=== PATIENT | female | born 1930 | race American Indian/Alaskan Native ===

== ENCOUNTER 2017-09-08 06:38 | Day surgery (SDC) | payer MEDICARE ==
[2017-08-15 09:02] VITALS: BMI 25.1
[~2017-09-08 06:38] MED LIST: Iohexol 350 MG/100 ML VIAL ONE
[2017-09-08 07:23] LABS: BASO # 0.03 K/mm3 (0.0-2.0); BASO % 0.4 % (0.0-3.0); EOS # 0.3 (0.0-0.7); EOS % 3.2 % (1.5-5.0); GRAN # 6.47 (1.4-6.5); GRAN % 76.6 % (50.0-68.0); HEMOGLOBIN 9.6 g/dL (12.0-16.0); LYMPH # 1.2 (1.2-3.4); LYMPH % 13.8 % (22.0-35.0); MEAN CELL VOLUME 71.1 fl (80.0-105.0); MEAN CORPUSCULAR HEMOGLOBIN 21.8 pg (25.0-35.0); MEAN CORPUSCULAR HGB CONC 30.7 g/dl (31.0-37.0); MEAN PLATELET VOLUME 9.8 fl (7.0-11.0); MONO # 0.5 (0.1-0.6); RBC 4.4 10^6/uL (3.5-6.1); RED CELL DISTRIBUTION WIDTH 18.8 % (11.5-14.5); WHITE BLOOD COUNT 8.5 10^3/ul (4.5-11.0)
[2017-09-08 07:34] LABS: BLOOD UREA NITROGEN 15 mg/dL (7-21); CALCIUM 9.6 mg/dL (8.4-10.5); GFR AFRICAN-AMERICAN > 60; GFR NON-AFRICAN AMERICAN 59; HDL CHOLESTEROL 38 mg/dL (29-60)
[2017-09-08 07:38] LABS: INR 1.04 (0.93-1.08); PARTIAL THROMBOPLASTIN TIME 31.3 Seconds (25.1-36.5)
[2017-09-08 07:44] LABS: LDL CHOLESTEROL 87 mg/dL (0-129)
[2017-09-08] MEDS ORDERED: Lidocaine 2% Inj (20ml) ONE (07:49)
[2017-09-08] MEDS ORDERED: Sodium Chloride 0.9% 1,000 ML IV SCH (08:30)
[2017-09-08 09:10] VITALS: BP 141/61; PULSE 55; RESP 18; TEMP 97.7; O2SAT 94
--- NOTE | 2017-09-08 09:20 | CPOSTOP ---
DATE: 09/08/2017 CARDIOVASCULAR PROCEDURE DONE IN [facility] (IMPLANTATION OF LOOP RECORDER). PHYSICIAN: Redd Chilel MD. HYPERBARIC NURSE: Amanda Manzano. TYPE OF ANESTHESIA: None. PRE-PROCEDURE DIAGNOSIS: Recurrent palpitation rule out paroxysmal atrial fibrillation. PROCEDURE PERFORMED: Implantation of loop recorder Link Medtr[employer]. FINDINGS: No complication, implantation of loop recorder. FINAL DIAGNOSIS: Recurrent palpitation rule out paroxysmal atrial fibrillation. POST PROCEDURE CONDITION: The patient's condition is stable. ACCESS SITE: Left side of the chest. CLOSURE DEVICE: None. RADIATION DOSE: None. FLUORO TIME: None. Redd Chilel MD
--- NOTE | 2017-09-08 12:54 | CARDCATH ---
PROCEDURE DATE: 09/08/2017 CARDIOVASCULAR PROCEDURE NAME OF PROCEDURE: Implantation of loop recorder. INDICATION: Recurrent palpitation, rule out paroxysmal atrial fibrillation. FINAL DRESSING CUTTER: Redd Chilel MD WOOL BROKER: Amanda Manzano, electrical assembly technician, [facility]. BRIEF CLINICAL HISTORY: This 87-year-old female with a past medical history of hypertension, history of nonobstructive coronary artery disease status post cardiac catheterization on 03/2013, only obtuse marginal with 50% stenosis. Recently had noninvasive workup including echo, mild MR, mild aortic sclerosis versus aortic stenosis, ejection fraction 65% on 12/2016. Also, the patient has a stress test on 12/2016 with essentially normal ejection fraction of 70%, keep on complaining of palpitation, Holter was negative, so the patient is scheduled for implantation of loop recorder because of the recurrent palpitation, rule out paroxysmal atrial fibrillation. PROCEDURE PERFORMED: Implant of loop recorder. The patient was brought to the track laborer, draped in a sterile standard fashion. Left side of the chest was prepped and in fourth intercostal space 1.5 cm away from the midline, lidocaine injection was given and then with a [employer] BP knife #11, a small incision was made and a pocket was created for the loop recorder and the loop recorder was injected. Puncture site was closed with a Dermabond. The patient tolerated the procedure well and returned to the floor in stable condition. Arrangement has been made for the followup and transtelephonic [facility] service for loop recorder wireless transmission has been made. The patient remained stable and returned to the floor in stable condition. Plan is to discharge home and continue with same medication and followup transtelephonic in six months onsite. Redd Chilel MD cc: Dr. Gallego. Dr. Mishra.
--- NOTE | 2017-09-08 16:19 | HP ---
REASON FOR ADMISSION: Implantation of loop recorder, LIN[employer]. BRIEF CLINICAL HISTORY: This is an 87-year-old female with a past medical history significant for hypertension, hyperlipidemia, mitral regurgitation on DIAMOND, came in with a complaint of palpitation multiple times in Dr. Mishra's office and complained of tightness to chest associated with palpitations, so the patient is scheduled for elective implantation of loop recorder. PAST MEDICAL HISTORY: Past history significant for hypertension; hyperlipidemia; mitral regurgitation on DIAMOND, severe. Previous cardiac workup as follows. History of echocardiography dated 01/01/2017 shows normal chambers, ejection fraction 65%, [id number] aortic regurgitation, mild valvular aortic sclerosis, mild mitral regurgitation, trace tricuspid regurgitation, RV systolic pressure 35. History of stress test on 01/01/2017 shows normal myocardial perfusion with ejection fraction of 72%. Prior to that, the patient's DIAMOND in the past shows severe mitral regurgitation. History of cardiac catheterization in 03/2013 shows OM1 50% stenosis. SOCIAL HISTORY: Denies any history of alcohol abuse. CURRENT MEDICATIONS: The patient is at home taking metoprolol succinate 50 mg daily, aspirin 81 mg daily, Norvasc 10 mg daily. REVIEW OF SYSTEMS: As per HPI. PHYSICAL EXAMINATION: VITAL SIGNS: Height of the patient is 5 feet 2 inches. Weight of the patient 145 pounds. Body mass index 26.5 kg/m2. Temperature afebrile, heart rate 60, blood pressure 190/60. HEENT: PERRLA, intact. NECK: Supple. No carotid bruit. No thyromegaly. CHEST: Clear to auscultation. HEART: S1 and S2 regular. ABDOMEN: Soft. EXTREMITIES: Clubbing and cyanosis negative. IMPRESSION: Recurrent palpitation, mild mitral regurgitation. Prior, the patient had severe MR when the blood pressure goes up. Recently, stress test in 2017 was negative. History of cardiac catheterization in 03/2013, nonobstructive coronary artery disease, limited to only 50% OM1. Recent echo in 12/2016 shows mild aortic stenosis versus sclerosis, mild myocardial infarction, ejection fraction 65%. Stress test in 12/2016 essentially normal myocardial perfusion study. EKG, baseline right bundle-branch block, recurrent palpitation, rule out paroxysmal atrial fibrillation. The patient is scheduled for elective implantation of loop recorder from the recommendations. After the loop recorder, we will follow with you. Thank you, Dr. Gallego, for providing us the opportunity in taking care of the patient, Yenny Astorga. Redd Chilel MD
--- NOTE | 2017-09-09 15:18 | CARD ---
APPROVED REPORT EKG Measurement Heart [id number] <Conclusion> Marked sinus bradycardia Right bundle branch block Abnormal ECG
== END 2017-09-08 09:38 | disposition home or self-care (01) ==
LOC: SDSVAS 06:38
PROVIDERS: ATTEND Internal Medicine Cardiovascular Disease
DX: R00.2 Palpitations (principal); I34.0 Nonrheumatic mitral (valve) insufficiency; I25.10 Atherosclerotic heart disease of native coronary artery without angina pectoris; I10 Essential (primary) hypertension; E78.5 Hyperlipidemia, unspecified
CPT/HCPCS: 33282; 36415; 80048; 80061; 85025; 85610; 85730; 86850; 86900; C1764; J7040 ×2

== ENCOUNTER 2017-11-25 09:59 | Inpatient (IN) | payer MEDICARE, OTHER ==
[2017-11-25 10:16] VITALS: BMI 24.7
[2017-11-25] MEDS ORDERED: Morphine 2 mg/ml ISec IVP STA (10:32)
[2017-11-25] MEDS ORDERED: Sodium Chloride 0.9% 500 ML IV STA (10:33)
[2017-11-25] MEDS ORDERED: Albuterol 0.083% Inhal Sol (2.5 mg/3 mL) UD INH STA (10:37)
[2017-11-25 10:48] LABS: BASO # 0.04 K/mm3 (0.0-2.0); BASO % 0.5 % (0.0-3.0); EOS # 0.2 (0.0-0.7); EOS % 3.1 % (1.5-5.0); GRAN # 5.48 (1.4-6.5); GRAN % 74.2 % (50.0-68.0); HEMOGLOBIN 9.3 g/dL (12.0-16.0); LYMPH % 13.5 % (22.0-35.0); MEAN CELL VOLUME 72.3 fl (80.0-105.0); MEAN CORPUSCULAR HEMOGLOBIN 21.7 pg (25.0-35.0); MONO # 0.6 (0.1-0.6); MONO % 8.7 % (1.0-6.0); PLATELET COUNT 468 10^3/uL (120.0-450.0); RBC 4.29 10^6/uL (3.5-6.1); RED CELL DISTRIBUTION WIDTH 19.2 % (11.5-14.5); WHITE BLOOD COUNT 7.4 10^3/ul (4.5-11.0)
--- NOTE | 2017-11-25 10:50 | RAD ---
Date of service: 11/25/2017 HISTORY: Chest Tightness COMPARISON: 01/11/2014 FINDINGS: LUNGS: Interval trace discoid atelectasis left lung base. The mid more mid lung zone trace discoid atelectatic changes and/or fibrosis are similar in appearance No more significant appearing consolidation appreciated. PLEURA: No significant pleural effusion identified, no pneumothorax apparent. CARDIOVASCULAR: Cardiomegaly-as before. Mild pulmonary venous congestion interstitial probably slightly increased since prior exam. OSSEOUS STRUCTURES: No significant abnormalities. VISUALIZED UPPER ABDOMEN: Normal. OTHER FINDINGS: None. IMPRESSION: Probable mild increased pulmonary venous congestion. Cardiomegaly as before. No effusion.
[2017-11-25 10:58] LABS: ALB/GLOB RATIO 1.1 (1.1-1.8); ALBUMIN 3.8 g/dL (3.0-4.8); ALT/SGPT 20 U/L (7-56); AST/SGOT 32 U/L (14-36); BLOOD UREA NITROGEN 11 mg/dL (7-21); CALCIUM 9.4 mg/dL (8.4-10.5); GFR AFRICAN-AMERICAN > 60; GFR NON-AFRICAN AMERICAN 59
[2017-11-25 11:04] LABS: INR 1.05
[2017-11-25 11:09] LABS: B-TYPE NATRIURETIC PEPTIDE 1210 pg/mL (0-450); TROPONIN I < 0.01 ng/mL
--- NOTE | 2017-11-25 13:22 | CP.PCM.HP ---
<Khadra Beckwith - Last Filed: 11/25/17 14:54> History of Present Illness - History of Present Illness History of Present Illness: CC: chest pressure for 1 week HPI: 87yo female PMHx HTN, HLD, thrombocytosis, severe MR presents with chest pressure for 1 week. Patient reports she decided to come in today as the pressure was not improving. She described it as a tightness in the middle of her chest rated 8-9/10 in intensity. The tightness is intermittent with no identifiable exacerbating or alleviating factors. Patient reports that sometimes the chest pressure would radiate to her right side. She also has dyspnea on exertion and is able to ambulate 1/2 a block prior to feeling short of breath. She does admit to some orthopnea at times but uses 1 pillow to sleep generally; the night prior to admission patient tried to sleep with 2 pillows but it did not help her chest tightness. She admitted to some b/l ankle swelling at the end of the day. Patient denied any recent travel/sick contacts. Of note patient was recently seen by Dr. Chilel 2 weeks ago to have a loop recorded placed as she was complaining of chest tightness and palpitations. Patient also had a stress test 01/01/17 showing normal mycocardial perfusion with EF 72% ROS: admits: intermittent headache, intermittent palpitations improved since implantation of loop recorded and change in medications, chest pressure, dyspnea on exertion, some b/l ankle swelling at the end of the day denies: fever, chills, dizziness, cough, abd pain, nausea, vomiting, bowel/ bladder complaints, pain in legs b/l PMHx: HTN, HLD, thrombocytosis, severe MR seen on DIAMOND PSurgHx: denies PProcedure: implantation of loop recorded 09/08/17; cardiac cath 03/2013 OM1 50% stenosis PH[place] [facility] [place], mitral regurg and had a cardiac cath showing nonobstructive CAD FamHx: father of an OH in his 70s and son of esophageal cancer [ tobacco abuse in son's hx] in his 40s; no hx of CVA in family SocHx: Lives alone; denies EtOH/tobacco use/drug use (used to smoke cigarettes 35 years ago for 20 years); ambulates without cane/walker and completes all ADLs ; 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 Meds: ASA 81mg po qd, Metoprolol 50mg po bid ALL: NKDA PMD: Potoczek [not seen in a while] Quantitative Analyst: Dr. Chilel [last seen 2 weeks ago] Pharmacy: [facility] off of [address] Present on Admission - Present on Admission Any Indicators Present on Admission: No Review of Systems - Review of Systems All systems: reviewed and no additional remarkable complaints except - Constitutional Constitutional: As Per HPI, Headache. absent: Chills, Fever - EENT Eyes: As Per HPI. absent: Blurred Vision Ears: As Per HPI. absent: Dizziness Nose/Mouth/Throat: As Per HPI. absent: Sore Throat - Cardiovascular Cardiovascular: As Per HPI, Dyspnea on Exertion, Palpitations, Pedal Edema. absent: Chest Pain Additional comments: chest tightness - Respiratory Respiratory: As Per HPI, Dyspnea on Exertion. absent: Cough, Wheezing - Gastrointestinal Gastrointestinal: As Per HPI. absent: Abdominal Pain, Constipation, Diarrhea, Nausea, Vomiting - Genitourinary Genitourinary: As Per HPI. absent: Dysuria, Hematuria, Pyuria - Musculoskeletal Musculoskeletal: As Per HPI. absent: Back Pain, Numbness, Tingling - Integumentary Integumentary: As Per HPI. absent: Dry Skin, Rash - Neurological Neurological: As Per HPI, Headaches. absent: Dizziness - Endocrine Endocrine: As Per HPI, Palpitations. absent: Polydipsia, Polyphagia, Polyuria - Hematologic/Lymphatic Hematologic: As Per HPI, Easy Bruising. absent: Easy Bleeding Past Patient History - Infectious Disease Hx of Infectious Diseases: None - Past Social History Smoking Status: Former Smoker - CARDIAC Hx Hypertension: Yes Hx Pacemaker: No - PULMONARY Hx Respiratory Disorders: Yes (Mild shortness of breath with exertion.) - NEUROLOGICAL Hx Paralysis: No - HEENT Hx HEENT Problems: No - RENAL Hx Chronic Kidney Disease: No - ENDOCRINE/METABOLIC Hx Endocrine Disorders: No - HEMATOLOGICAL/ONCOLOGICAL Hx Blood Transfusions: Yes (MANY YRS AGO) Hx Blood Transfusion Reaction: No - INTEGUMENTARY Hx Dermatological Problems: No - MUSCULOSKELETAL/RHEUMATOLOGICAL Hx Musculoskeletal Disorders: Yes - GASTROINTESTINAL Hx Gastrointestinal Disorders: No - GENITOURINARY/GYNECOLOGICAL Hx Genitourinary Disorders: No - PSYCHIATRIC Hx Emotional Abuse: No Hx Physical Abuse: No Hx Substance Use: No - SURGICAL HISTORY Hx Surgeries: No - ANESTHESIA Hx Anesthesia Reactions: No Hx Malignant Hyperthermia: No Meds Allergies/Adverse Reactions: Allergies Allergy/AdvReac Type Severity Reaction Status Date / Time No Known Allergies Allergy Verified 11/25/17 17:11 Physical Exam - Constitutional Appears: Non-toxic, No Acute Distress - Head Exam Head Exam: ATRAUMATIC, NORMAL INSPECTION, NORMOCEPHALIC - Eye Exam Eye Exam: EOMI, Normal appearance, PERRL. absent: Conjunctival injection, Scleral icterus Pupil Exam: NORMAL ACCOMODATION - ENT Exam ENT Exam: Mucous Membranes Moist - Neck Exam Neck exam: Positive for: Full Rom, Normal Inspection. Negative for: Lymphadenopathy - Respiratory Exam Respiratory Exam: NORMAL BREATHING PATTERN. absent: Accessory Muscle Use, Rales , Rhonchi, Wheezes, Respiratory Distress - Cardiovascular Exam Cardiovascular Exam: Bradycardia, REGULAR RHYTHM, +S1, +S2. absent: Systolic Murmur - GI/Abdominal Exam GI & Abdominal Exam: Normal Bowel Sounds, Soft. absent: Firm, Guarding, Rigid, Tenderness - Rectal Exam Rectal Exam: Deferred - Extremities Exam Extremities exam: Positive for: pedal edema (+1 b/l L>R), pedal pulses present. Negative for: calf tenderness - Back Exam Back exam: absent: rash noted - Neurological Exam Neurological exam: Alert, CN II-XII Intact, Oriented x3 - Psychiatric Exam Psychiatric exam: Normal Affect, Normal Mood - Skin Skin Exam: Dry, Intact, Normal Color, Warm Results - Vital Signs Recent Vital Signs: Last Vital Signs Temp 98.6 F 11/25/17 09:59 Pulse 50 L 11/25/17 12:19 Resp 18 11/25/17 12:19 BP 112/80 11/25/17 12:56 Pulse Ox 100 11/25/17 12:19 - Labs Result Diagrams: 11/25/17 10:30 11/25/17 10:30 Assessment & Plan - Assessment and Plan (Free Text) Assessment: 87yo female PMHx HTN, HLD, thrombocytosis, severe MR presents with chest pressure for 1 week. Plan: Chest tightness and dyspnea on exertion -r/o ACS and r/o new onset CHF; admit to remote TELE-Obs -troponin x 1 negative f/u troponin x 2 -EKG: sinus bradycardia with RBB unchanged from EKG 09/08/17 -BNP on admission 1210 -f/u Echo -f/u TSH and free T4 in light of patient's palpitations -Lasix 20mg ivp -continue home Metoprolol 50mg po bid -measure daily weights -strict Is and Os -HHD with 2gm Na and 1500cc fluid restriction -Cardio Dr. Chilel/Dr. Mishra consulted Hx of HTN -continue home meds ASA 81mg qd and Metoprolol 50mg po bid Hx of HLD -Lipid panel on prior admission 09/08/17 was WNL TG 124 Cholesterol 186 LDL 87 HDL 38 Hx of Thrombocytosis -chronic -no acute issues -monitor DVT ppx: SCDs and Heparin 5000 q8 Diet: HHD with 2gm Na and 1500cc fluid restriction Consults: Dr. Mishra/Dr. Chilel cardiology Discussed with Dr. Mauro Beckwith PGY3 <Ely Wade R - Last Filed: 11/26/17 07:51> Results - Vital Signs Recent Vital Signs: Last Vital Signs Temp 98.3 F 11/25/17 18:31 Pulse 48 L 11/26/17 06:00 Resp 18 11/25/17 18:31 BP 177/64 H 11/25/17 18:31 Pulse Ox 96 11/25/17 18:31 - Labs Result Diagrams: 11/26/17 07:00 11/25/17 10:30 Labs: Laboratory Results - last 24 hr 11/25/17 11/25/17 11/25/17 14:15 16:15 16:15 WBC RBC Hgb Hct MCV MCH MCHC RDW Plt Count MPV Gran % Lymph % (Auto) [place] % (Auto) Eos % (Auto) Baso % (Auto) Gran # Lymph # (Auto) [place] # (Auto) Eos # (Auto) Baso # (Auto) Troponin I < 0.01 Free T4 1.48 TSH 3rd Generation 5.39 H Urine Color Yellow Urine Appearance Clear Urine pH 6.0 Ur Specific Curtice 1.025 Urine Protein Trace H Urine Glucose (UA) Negative Urine Ketones Negative Urine Blood Negative Urine Nitrate Negative Urine Bilirubin Negative Urine Urobilinogen 0.2 Ur Leukocyte Esterase Moderate H Urine RBC 0 - 2 Urine WBC 5 - 10 Ur Epithelial Cells 4 - 5 Urine Bacteria Mod 11/25/17 11/26/17 22:36 07:00 WBC 6.7 RBC 4.10 Hgb 8.7 L Hct 29.8 L MCV 72.7 L MCH 21.2 L MCHC 29.2 L RDW 19.3 H Plt Count 442 MPV 10.3 Gran % 67.4 Lymph % (Auto) 16.7 L [place] % (Auto) 12.1 H Eos % (Auto) 3.4 Baso % (Auto) 0.4 Gran # 4.53 Lymph # (Auto) 1.1 L [place] # (Auto) 0.8 H Eos # (Auto) 0.2 Baso # (Auto) 0.03 Troponin I < 0.01 Free T4 TSH 3rd Generation Urine Color Urine Appearance Urine pH Ur Specific Curtice Urine Protein Urine Glucose (UA) Urine Ketones Urine Blood Urine Nitrate Urine Bilirubin Urine Urobilinogen Ur Leukocyte Esterase Urine RBC Urine WBC Ur Epithelial Cells Urine Bacteria Attending/Attestation - Attestation I have personally seen and examined this patient.: Yes I have fully participated in the care of the patient.: Yes I have reviewed all pertinent clinical information: Yes Notes (Text): Patient seen and examined by me at 14:30 with resident 11/25/17. Case including HPI, physical exam, and assessment and plan discussed with resident. Agree with above with following additions/corrections. Patient is an 87-year-old female with past medical history significant for hypertension, hyperlipidemia, thrombocytosis, palpitations, and severe mitral regurgitation that presents to the emergency room with worsening of chest pressure and shortness of breath. Patient states that she has been getting short of breath for approximately 2 weeks now and it has been progressively getting worse. She states that she is feeling short of breath with exertion and at rest. However the shortness of breath with exertion is worse than at rest. Patient states that she normally sleeps with one pillow at night. However last night patient attempted to sleep with 2 pillows and still felt short of breath. Patient also complains of chest "tightness" with intermittent "pressure-like" discomfort. She denies any chest pain. She states that both her chest tightness and chest pressure intermittent. It has on occasion radiated to her right axillary area. The tightness is an 8-9 out of 10 in intensity. Patient also complains of palpitations but states that this has improved since being started on metoprolol. She states that she has had palpitations or life. No associated nausea or vomiting. No associated diaphoresis. Patient states that she also has some ankle swelling on occasion at the end of the day. No abdominal pain. No headaches or dizziness. No dysuria. No neck pain or back pain. No calf pain. No lightheadedness. No fevers or chills. 12 point review systems reviewed by me. Please see HPI. All other systems are negative. Physical exam: Gen: Awake and alert sitting up in bed in no acute distress HEENT: Normocephalic atraumatic. Extraocular muscles intact, pupils equal reactive. Oropharynx is pink and moist, no pharyngeal erythema or exudate appreciated. Neck is supple. Hearing grossly intact. Ears and nose externally unremarkable Cardiovascular: Bradycardic S1, S2. No murmurs, rubs, or gallops appreciated, Positive bilateral lower extremity pitting edema. Pulmonary: Normal respiratory effort. No rhonchi, rales or wheezing appreciated. Gastrointestinal: Soft, nontender, nondistended, positive bowel sounds all 4 quadrants, no guarding. Musculoskeletal: Normal range of motion all extremities, no calf tenderness Central nervous system: AAO x 3. 5/5 muscle strength all extremities. CN 2-12 grossly intact Dermatologic: Skin warm and dry Assessment and plan: Patient is an 87-year-old female with past medical history significant for hypertension, hyperlipidemia, thrombocytosis, palpitations, and severe mitral regurgitation that presents to the emergency room with worsening of chest pressure and shortness of breath. 1. Chest tightness and shortness of breath. Rule out ACS. First troponin within normal limits. EKG shows sinus bradycardia and right bundle branch block. She recently had loop recorder placement. Cardiology consulted, follow up recommendations. ?new onset CHF. Elevated BNP. Symptoms improved after Lasix given in the ED. Will continue on lasix 20mg IV daily. Continue home medications metoprolol and ASA. 2d echo ordered. Follow up serial troponins. Follow up TSH and Free T4. Monitor on telemetry. 2. Essential hypertension. Continue metoprolol 50mg PO BID 3. Palpitations. Continue home Metopolol. Monitor on telemetry. Cardiology consulted 4. Thrombocytosis. Chronic. No acute issues. Continue to monitor. 5. Anemia. Chronic. H&H at baseline. No signs of acute bleeding. Continue to monitor. 6. Abnormal urinalysis. Patient asymptomatic. Follow up urine culture. 7. DVT prophylaxis. Heparin Case was discussed in detail with the patient regarding current diagnosis and treatment plan.
[2017-11-25 14:25] LABS: URINE BILIRUBIN NEGATIVE (NEGATIVE); URINE BLOOD NEGATIVE (NEGATIVE); URINE GLUCOSE (UA) NEGATIVE (NEGATIVE); URINE LEUKOCYTE ESTERASE MODERATE Leu/uL (NEGATIVE); URINE PROTEIN TRACE mg/dL (<30 mg/dL); URINE UROBILINOGEN 0.2 E.U./dL (<1 E.U./dL)
[2017-11-25 14:27] LABS: URINE APPEARANCE CLEAR (CLEAR); URINE COLOR YELLOW (YELLOW)
[2017-11-25 14:36] LABS: URINE BACTERIA MOD (NEG); URINE RBC 0 - 2 /hpf (0-2)
[2017-11-25 16:50] LABS: FREE T4 1.48 ng/dL (0.78-2.19)
[2017-11-25] MEDS: Metoprolol Succinate 50 mg XL Tab PO SCH (17:22)
[2017-11-25] MEDS ORDERED: Pneumococcal 23-Valent Vaccine IM ONE (18:49)
--- NOTE | 2017-11-26 06:55 | CP.PCM.PN ---
<ChinmaySadaf - Last Filed: 11/26/17 19:03> Subjective - Date & Time of Evaluation Date of Evaluation: 11/26/17 Time of Evaluation: 17:47 - Subjective Subjective: Sadaf Moy PGY1 Progress Note for Dr. Ely Wade Ms. Astorga was seen at [facility] this morning. She complained of a headache. She denied any dizziness, blurry vision, chest pain, palpitations, shortness of breath, abdominal pain, nausea, vomiting, swelling, or dysuria. Objective - Vital Signs/Intake and Output Vital Signs (last 24 hours): Temp Pulse Resp BP Pulse Ox 98.3 F 48 L 18 177/64 H 96 11/25/17 18:31 11/26/17 06:00 11/25/17 18:31 11/25/17 18:31 11/25/17 18:31 Intake and Output: 11/25/17 11/26/17 18:59 06:59 Intake Total 360 60 Output Total 300 Balance 60 60 - Medications Medications: Current Medications Aspirin (Ecotrin) 81 mg PO DAILY [facility] Furosemide (Lasix) 20 mg IVP DAILY [facility] Heparin Sodium (Porcine) (Heparin) 5,000 units SC Q8 [facility] PRN Reason: Protocol Last Admin: 11/26/17 05:09 Dose: 5,000 units Metoprolol Succinate (Toprol Xl) 50 mg PO BID [facility] Last Admin: 11/25/17 17:22 Dose: 50 mg - Labs Labs: PT 12.1 SECONDS 11/25/17 10:30 INR 1.05 11/25/17 10:30 - Constitutional Appears: Well, No Acute Distress - Head Exam Head Exam: ATRAUMATIC, NORMOCEPHALIC - Eye Exam Eye Exam: EOMI, Normal appearance, PERRL - ENT Exam ENT Exam: Mucous Membranes Moist - Respiratory Exam Respiratory Exam: Clear to Ausculation Bilateral, NORMAL BREATHING PATTERN. absent: Rales, Rhonchi, Wheezes, Respiratory Distress - Cardiovascular Exam Cardiovascular Exam: Bradycardia, REGULAR RHYTHM, +S1, +S2. absent: Gallop, Rubs, Murmur - GI/Abdominal Exam GI & Abdominal Exam: Soft, Normal Bowel Sounds. absent: Distended, Firm, Tenderness - Extremities Exam Extremities Exam: absent: Calf Tenderness, Joint Swelling, Pedal Edema - Back Exam Back Exam: NORMAL INSPECTION - Neurological Exam Neurological Exam: Alert, Awake, Oriented x3 - Psychiatric Exam Psychiatric exam: Normal Affect, Normal Mood - Skin Skin Exam: Normal Color. absent: Cyanosis, Pallor Assessment and Plan - Assessment and Plan (Free Text) Assessment: Ms. Astorga is an 87yo female with PMHx HTN, HLD, thrombocytosis, severe MR presents with chest pressure for 1 week. Admitted for work up of ACS vs. CHF. Plan: Chest tightness and dyspnea on exertion - etiology: r/o ACS and r/o new onset CHF - walk test (11/26): mild dyspnea and leg pain on walking, 02 sat 86% RA - troponin x 3 negative - EKG: sinus bradycardia with RBB unchanged from EKG 09/08/17 - BNP on admission 1210 - Echo: awaiting reading - CXR (11/26): no active disease - UCx pending - given Lasix PO 40, as per Dr. Chilel - continue home metoprolol succinate 50mg po bid - continue to measure daily weights - I:420 ml / O: 300ml - continue strict I/Os - HHD with 2gm Na and 1500cc fluid restriction - Cardio consulted: Dr. Chilel on board - PT eval ordered - repeat walk test ordered Hx of HTN - continue home meds ASA 81mg qd and Metoprolol succinate 50mg po bid - will monitor Hx of HLD - Lipid panel on prior admission 09/08/17 was WNL TG 124 Cholesterol 186 LDL 87 HDL 38 Hx of Thrombocytosis -chronic -no acute issues -monitor DVT ppx: SCDs and Heparin 5000 q8 Diet: HHD with 2gm Na and 1500cc fluid restriction Discussed and reviewed with Dr. Ely Wade <Ely Wade - Last Filed: 11/28/17 17:34> Objective - Vital Signs/Intake and Output Vital Signs (last 24 hours): Temp Pulse Resp BP Pulse Ox 98.0 F 50 L 20 130/53 L 95 11/27/17 18:00 11/27/17 18:00 11/27/17 18:00 11/27/17 18:00 11/27/17 18:00 - Labs Labs: 11/27/17 06:30 11/27/17 06:30 PT 12.1 SECONDS (9.4-12.5) 11/25/17 10:30 INR 1.05 11/25/17 10:30 Attending/Attestation - Attestation I have personally seen and examined this patient.: Yes I have fully participated in the care of the patient.: Yes I have reviewed all pertinent clinical information, including history, physical exam and plan: Yes Notes (Text): Patient seen and examined by me at 10:55AM with resident 11/26/17. Case including HPI, physical exam, and assessment and plan discussed with resident. Agree with above with following additions/corrections. Patient states that she is feeling better. States shortness of breath has improved. Chest pressure has resolved. No chest pain or palpitations. Patient has been ambulating with improved shortness of breath. No fevers or chills. No nausea, vomiting, abdominal pain. No dysuria. No headaches or dizziness. No fevers or chills. Physical exam: Gen: Awake and alert sitting up in bed in no acute distress HEENT: Normocephalic atraumatic. Extraocular muscles intact, pupils equal reactive. Oropharynx is pink and moist, no pharyngeal erythema or exudate appreciated. Neck is supple. Cardiovascular: Bradycardic S1, S2. No murmurs, rubs, or gallops appreciated, Positive mild bilateral lower extremity pitting edema. Pulmonary: Normal respiratory effort. No rhonchi, rales or wheezing appreciated. Gastrointestinal: Soft, nontender, nondistended, positive bowel sounds all 4 quadrants, no guarding. Musculoskeletal: Normal range of motion all extremities, no calf tenderness Central nervous system: AAO x 3. 5/5 muscle strength all extremities. CN 2-12 grossly intact Dermatologic: Skin warm and dry Assessment and plan: Patient is an 87-year-old female with past medical history significant for hypertension, hyperlipidemia, thrombocytosis, palpitations, and severe mitral regurgitation that presents to the emergency room with worsening of chest pressure and shortness of breath. 1. Chest tightness and shortness of breath. Acute coronary syndrome ruled out. Cardiology following, recommendations appreciated. Patient likely with diastolic CHF. Elevated BNP. Continue with Lasix. Patient cleared for discharge by cardiology. Continue home medications metoprolol and ASA. 2d echo per supervisor trust accounts shows EF of 55-60% and moderate pulmonary hypertension (we see official results for full details). Patient to be continued on Lasix 40 mg per cardiology 2. Hypoxia. Patient's O2 saturation within normal limits at rest. O2 saturation dropped to 86% with ambulating. We'll continue with diuresis for now. We'll recheck O2 saturation tomorrow after ambulation 3. Essential hypertension. Continue metoprolol 50mg PO BID 4. Palpitations. Improved. Continue home Metopolol. 5. Thrombocytosis. Not seen here. Chronic. No acute issues. Continue to monitor. 6. Anemia. Chronic. H&H at baseline. No signs of acute bleeding. Continue to monitor. 7. Abnormal urinalysis. Patient asymptomatic. Urine culture with no growth 8. DVT prophylaxis. Heparin Patient changed to inpatient status secondary to hypoxemia of 86% with ambulation requiring further inpatient treatment. Case was discussed in detail with the patient regarding current diagnosis and treatment plan.
--- NOTE | 2017-11-26 06:58 | CARD ---
APPROVED REPORT Date of service: 11/25/2017 EKG Measurement Heart [id number] <Conclusion> Sinus bradycardia Right bundle branch block Abnormal ECG
[2017-11-26 07:25] LABS: BASO # 0.03 K/mm3 (0.0-2.0); BASO % 0.4 % (0.0-3.0); EOS # 0.2 (0.0-0.7); EOS % 3.4 % (1.5-5.0); GRAN # 4.53 (1.4-6.5); GRAN % 67.4 % (50.0-68.0); HEMOGLOBIN 8.7 g/dL (12.0-16.0); LYMPH # 1.1 (1.2-3.4); LYMPH % 16.7 % (22.0-35.0); MEAN CELL VOLUME 72.7 fl (80.0-105.0); MEAN CORPUSCULAR HEMOGLOBIN 21.2 pg (25.0-35.0); MEAN CORPUSCULAR HGB CONC 29.2 g/dl (31.0-37.0); MEAN PLATELET VOLUME 10.3 fl (7.0-11.0); MONO # 0.8 (0.1-0.6); MONO % 12.1 % (1.0-6.0); RBC 4.1 10^6/uL (3.5-6.1); RED CELL DISTRIBUTION WIDTH 19.3 % (11.5-14.5); WHITE BLOOD COUNT 6.7 10^3/ul (4.5-11.0)
[2017-11-26 07:47] LABS: ALB/GLOB RATIO 1.1 (1.1-1.8); ALBUMIN 3.4 g/dL (3.0-4.8); CALCIUM 9.2 mg/dL (8.4-10.5)
[2017-11-26] MEDS: Metoprolol Succinate 50 mg XL Tab PO SCH ×2 (08:59→17:25)
[2017-11-26 13:47] LABS: PROTHROMBIN TIME 12.1 SECONDS (9.4-12.5)
--- NOTE | 2017-11-26 15:50 | RAD ---
Date of service: 11/26/2017 HISTORY: F/U pneumonia Vs CHF and compare COMPARISON: 11/25/2017 TECHNIQUE: Chest PA and lateral FINDINGS: LUNGS: No active pulmonary disease. PLEURA: No significant pleural effusion identified. No pneumothorax apparent. CARDIOVASCULAR: Mild cardiomegaly OSSEOUS STRUCTURES: No significant abnormalities. VISUALIZED UPPER ABDOMEN: Normal. OTHER FINDINGS: None. IMPRESSION: No active disease.
--- NOTE | 2017-11-26 20:53 | CON ---
Copied To: Redd Chilel MD Attending MD: Redd Chilel MD DATE: 11/26/2017 SERVICE: Cardiology. REASON FOR THE CONSULTATION: Cardiac evaluation for acute decompensated congestive heart failure, probably secondary to mitral regurgitation. BRIEF CLINICAL HISTORY: This is an 87-year-old female with past medical history significant for hypertension, hyperlipidemia, mitral regurgitation, status post loop recorder for palpitation, rule out paroxysmal atrial fibrillation who had a loop recorder implantation on 09/08/2017, came in with complaining of mild progressively worsening shortness of breath. Denies any chest pain, denies any palpitation. Complained of paroxysmal nocturnal dyspnea and orthopnea. Also admits some swelling of the leg. PAST MEDICAL HISTORY: Past history is significant for hypertension, hyperlipidemia, mitral regurgitation, severe on DIAMOND. PREVIOUS CARDIAC WORKUP: As follows: The patient had implantation of loop recorder, 09/08/2017 because of recurrent palpitation. The patient has a history of cardiac catheterization, 03/2013, nonobstructive only obtuse margin 150% of stenosis. Recently, the patient has noninvasive workup including echo and stress test dated 12/2016 with essentially normal myocardial perfusion study, ejection fraction of 70%. The patient keep on complaining of palpitation. Holter was negative, so the patient underwent loop recorder. So far, loop recorder did not show any evidence of paroxysmal atrial fibrillation. The patient had recent echo, 01/01/2017, showed normal chamber size, ejection fraction of 65%, [id number] aortic regurgitation, mild valvular aortic stenosis, mild mitral regurgitation, trace tricuspid regurgitation, RV systolic pressure 35. Prior to that, the patient has a DIAMOND in the past that showed severe mitral regurgitation. SOCIAL HISTORY: Denies any smoking. Denies any history of alcohol abuse. CURRENT MEDICATIONS: The patient at home is taking aspirin 81 mg daily, metoprolol succinate 50 mg daily, Norvasc 10 mg daily. REVIEW OF SYSTEMS: As per HPI. PHYSICAL EXAMINATION: VITAL SIGNS: As follows: Height of the patient is 5 feet, 3 inches, weight of the patient is 140 pounds, body mass index 24.8 kg/m2. Rest of the vitals: Temperature afebrile, heart rate 52, blood pressure 154/50. HEENT: PERRLA. Extraocular muscles intact. NECK: Supple. No carotid bruit. No thyromegaly. CHEST: Clear to auscultation. HEART: S1 and S2 regular. ABDOMEN: Soft. EXTREMITIES: Clubbing and cyanosis negative. LABORATORY DATA: Blood workup as follows: WBC , hemoglobin 8, hematocrit 29.8, platelet count 242. Chemistry showed sodium 140, potassium 4.6, chloride 107, carbon dioxide 29, anon gap of 11, BUN 16, creatinine 1.1. BNP 12,010. Troponin remained 0.01, negative. EKG showed sinus raphael, right bundle-branch block. No acute ST-T changes noted. Chest x-ray on admission shows encephalization and fluffy infiltrate consistent with possible CHF and pulmonary edema. IMPRESSION: An 87-year-old female with past medical history significant for nonobstructive coronary artery disease, status post cardiac catheterization dated 03/2013. At that time, only obtuse marginal 1 with stenosis, history of recent stress test 01/01/2017. Normal myocardial perfusion study, ejection fraction 72%. Recent echo dated 01/01/2017 shows normal chamber size, ejection fraction of 65%. [id number] aortic regurgitation. Mild aortic stenosis, mild mitral regurgitation. Right ventricular systolic pressure 35. Prior EKG shows severe mitral regurgitation, history of keep on complaining of palpitation. Holter was negative. The patient has a loop recorder implantation done [employer] dated 09/08/2017. So far, no evidence of arrhythmia noted who admitted yesterday with acute congestive heart failure, elevated BNP, shortness of breath. Chest x-ray consistent with congestive heart failure. RECOMMENDATIONS: Continue DVT prophylaxis, continue aspirin, continue Lasix. We will put 40 mg of Lasix twice a day. Continue metoprolol. Monitor blood pressure. The patient was on Norvasc. Also, we will start her on Norvasc and increase Lasix to 40 b.i.d. If remained stable, possible discharge home soon. We will follow as outpatient. Thank you, Dr. Pitts, for providing us the opportunity in taking care of the patient, Yenny Astorga. We will resume back Norvasc 10 mg daily with holding parameter. So far, no evidence of arrhythmia, no evidence of acute CO. We will repeat chest x-ray PA and lateral and also get an echo to assess LV function. Since TSH is 5.36, we will start low-dose Synthroid from tomorrow 6 a.m. Redd Chilel MD cc: Dr. Pitts
[2017-11-27] MEDS ORDERED: Levothyroxine 25 MCG TAB PO SCH (06:00)
[2017-11-27 06:50] LABS: BASO # 0.04 K/mm3 (0.0-2.0); BASO % 0.6 % (0.0-3.0); EOS # 0.3 (0.0-0.7); EOS % 3.7 % (1.5-5.0); GRAN # 4.59 (1.4-6.5); GRAN % 64.8 % (50.0-68.0); HEMOGLOBIN 9.8 g/dL (12.0-16.0); LYMPH # 1.5 (1.2-3.4); LYMPH % 20.9 % (22.0-35.0); MEAN CELL VOLUME 71.9 fl (80.0-105.0); MEAN CORPUSCULAR HEMOGLOBIN 21.5 pg (25.0-35.0); MONO # 0.7 (0.1-0.6); PLATELET COUNT 443 10^3/uL (120.0-450.0); RBC 4.55 10^6/uL (3.5-6.1); RED CELL DISTRIBUTION WIDTH 18.9 % (11.5-14.5); WHITE BLOOD COUNT 7.1 10^3/ul (4.5-11.0)
[2017-11-27 07:23] LABS: ALB/GLOB RATIO 1.1 (1.1-1.8); ALBUMIN 3.8 g/dL (3.0-4.8); ALT/SGPT 20 U/L (7-56); AST/SGOT 28 U/L (14-36); BLOOD UREA NITROGEN 25 mg/dL (7-21); CALCIUM 9.6 mg/dL (8.4-10.5); GFR AFRICAN-AMERICAN > 60; GFR NON-AFRICAN AMERICAN 52
--- NOTE | 2017-11-27 07:28 | CP.PCM.PN ---
Objective - Vital Signs/Intake and Output Vital Signs (last 24 hours): Temp Pulse Resp BP Pulse Ox 98.3 F 51 L 18 153/67 H 91 L 11/26/17 17:57 11/26/17 17:57 11/26/17 17:57 11/26/17 17:57 11/26/17 17:57 Intake and Output: 11/27/17 11/27/17 06:59 18:59 Intake Total 240 Output Total 752 Balance -512 - Medications Medications: Current Medications Acetaminophen (Tylenol 325mg Tab) 650 mg PO Q6H PRN PRN Reason: Pain, moderate (4-7) Last Admin: 11/26/17 08:17 Dose: 650 mg Amlodipine Besylate (Norvasc) 10 mg PO DAILY [facility] Last Admin: 11/26/17 10:50 Dose: 10 mg Aspirin (Ecotrin) 81 mg PO DAILY [facility] Last Admin: 11/26/17 08:59 Dose: 81 mg Furosemide (Lasix) 40 mg PO DAILY [facility] Heparin Sodium (Porcine) (Heparin) 5,000 units SC Q8 [facility] PRN Reason: Protocol Last Admin: 11/27/17 05:40 Dose: 5,000 units Levothyroxine Sodium (Synthroid) 25 mcg PO 0600 [facility] Last Admin: 11/27/17 05:41 Dose: 25 mcg Metoprolol Succinate (Toprol Xl) 50 mg PO BID [facility] Last Admin: 11/26/17 17:25 Dose: 50 mg - Labs Labs: 11/27/17 06:30 11/27/17 06:30 PT 12.1 SECONDS (9.4-12.5) 11/25/17 10:30 INR 1.05 11/25/17 10:30
--- NOTE | 2017-11-27 08:12 | CP.PCM.PN ---
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 Seen and examined by me and Dr. Chilel Objective - Vital Signs/Intake and Output Vital Signs (last 24 hours): Temp Pulse Resp BP Pulse Ox 98.3 F 51 L 18 153/67 H 91 L 11/26/17 17:57 11/26/17 17:57 11/26/17 17:57 11/26/17 17:57 11/26/17 17:57 Intake and Output: 11/27/17 11/27/17 06:59 18:59 Intake Total 240 Output Total 752 Balance -512 - Medications Medications: Current Medications Acetaminophen (Tylenol 325mg Tab) 650 mg PO Q6H PRN PRN Reason: Pain, moderate (4-7) Last Admin: 11/26/17 08:17 Dose: 650 mg Amlodipine Besylate (Norvasc) 10 mg PO DAILY [facility] Last Admin: 11/26/17 10:50 Dose: 10 mg Aspirin (Ecotrin) 81 mg PO DAILY [facility] Last Admin: 11/26/17 08:59 Dose: 81 mg Furosemide (Lasix) 40 mg PO DAILY [facility] Heparin Sodium (Porcine) (Heparin) 5,000 units SC Q8 [facility] PRN Reason: Protocol Last Admin: 11/27/17 05:40 Dose: 5,000 units Levothyroxine Sodium (Synthroid) 25 mcg PO 0600 [facility] Last Admin: 11/27/17 05:41 Dose: 25 mcg Metoprolol Succinate (Toprol Xl) 50 mg PO BID [facility] Last Admin: 11/26/17 17:25 Dose: 50 mg - Labs Labs: 11/27/17 06:30 11/27/17 06:30 PT 12.1 SECONDS (9.4-12.5) 11/25/17 10:30 INR 1.05 11/25/17 10:30 - Constitutional Appears: No Acute Distress - Head Exam Head Exam: NORMOCEPHALIC - Eye Exam Eye Exam: Normal appearance - ENT Exam ENT Exam: Mucous Membranes Moist - Respiratory Exam Respiratory Exam: Decreased Breath Sounds, NORMAL BREATHING PATTERN - Cardiovascular Exam Cardiovascular Exam: Bradycardia, +S1, +S2 Additional comments: loop recorder - GI/Abdominal Exam GI & Abdominal Exam: Soft, Normal Bowel Sounds - Extremities Exam Extremities Exam: Normal Capillary Refill - Neurological Exam Neurological Exam: Alert, Awake, Oriented x3 - Psychiatric Exam Psychiatric exam: Normal Affect - Skin Skin Exam: Intact, Warm Assessment and Plan - Assessment and Plan (Free Text) Assessment: A 87 year old female who came in to the ER due to chest pressure mid chest for at least a week with no relief. chest pain radiates to right arm. She also has complaints of paroxysmal norturnal dyspnea and orthopnea. History of hypertension,hyperlipidemia, thrombocytosis, mitral regurgitation, post loop recorder insertion 09/08/2017 for palpitation, results normal, no arrythmia.Acute decompensated congestive heart failure. Plan: Echo done awaiting results Feels better Continue Lasix to diurese Troponin normal x 3 Continue Norvasc 10 mg daily,ASA 81 mg daily, Lasix 40 mg daily, Toprol 50 mg BID Started on Synthroid yesterday Continue current treatment Continue current medications Will follow up Plan and treatment discussed with Dr. Chilel
[2017-11-27] MEDS: Metoprolol Succinate 50 mg XL Tab PO SCH (11:12)
--- NOTE | 2017-11-27 16:17 | CARD ---
APPROVED REPORT Date of service: 11/26/2017 EXAM: Two-dimensional and M-mode echocardiogram with Doppler and color Doppler. INDICATION CHEST TIGHTNESS/ CHF 2D DIMENSIONS Left Atrium (2D)4.0 (1.6-4.0cm)IVSd1.5 (0.7-1.1cm) LVDd4.1 (3.9-5.9cm)PWd1.5 (0.7-1.1cm) LVDs2.7 (2.5-4.0cm)FS (%) 34.1 % LVEF (%)63.5 (>50%) M-Mode DIMENSIONS Aortic Root2.70 (2.2-3.7cm)Aortic Cusp Exc.1.50 (1.5-2.0cm) Aortic Valve AoV Peak Ozcrrjhw103.0cm/Dona Peak GR.12mmHg Mitral Valve MV E Glktkoln448.0cm/sMV A Jgzlgwdc184.0cm/sE/A ratio0.9 TDI E/Lateral E'0.0E/Medial E'0.0 Tricuspid Valve TR Peak Vwakcbmr490ba/sRAP [id number] Peak Gr.50mmHg [id number] LEFT VENTRICLE The left ventricle is normal size. There is mild concentric left ventricular hypertrophy. The left ventricular function is normal.EF-55-60% There is normal LV segmental wall motion. Transmitral Doppler flow pattern is Grade III-reversible restrictive diastolic dysfunction. No left ventricle thrombus noted on this study. There is no ventricular septal defect visualized. There is no left ventricular aneurysm. RIGHT VENTRICLE The right ventricle is normal size. There is normal right ventricular wall thickness. The right ventricular systolic function is normal. ATRIA The left atrium is mildly dilated. The right atrium size is normal. The interatrial septum is intact with no evidence for an atrial septal defect. AORTIC VALVE The aortic valve is thickened but opens well. The aortic valve is moderately sclerotic. There is trace to mild aortic regurgitation. Aortic sclerosis Vs Mild There is no aortic valvular vegetation. MITRAL VALVE The mitral valve is thickened but opens well. Mitral annular calcification is moderate. Mitral regurgitation is mild to moderate. There is no mitral valve stenosis. There is no evidence of mitral valve prolapse. TRICUSPID VALVE The tricuspid valve leaflets are thickened , but open well. There is moderate tricuspid regurgitation.RVSP-60 mmof Hg. There is moderate pulmonary hypertension. There is no tricuspid valve stenosis. There is no tricuspid valve prolapse or vegetation. PULMONIC VALVE The pulmonic valve is mildly thickened. There is trace to mild pulmonic valvular regurgitation. There is no pulmonic valvular stenosis. GREAT VESSELS The aortic root is normal in size. The ascending aorta is normal in size. The pulmonary artery is normal. The IVC is normal in size and collapses >50% with inspiration. PERICARDIAL EFFUSION There is no pleural effusion. There is no pericardial effusion. <Conclusion> There is moderate tricuspid regurgitation.RVSP-60 mmof Hg. The left ventricle is normal size. There is mild concentric left ventricular hypertrophy. The left ventricular function is normal.EF-55-60% There is trace to mild aortic regurgitation. Aortic sclerosis Vs Mild Mitral regurgitation is mild to moderate. There is moderate tricuspid regurgitation.RVSP-60 mmof Hg. There is moderate pulmonary hypertension. There is trace to mild pulmonic valvular regurgitation. The IVC is normal in size and collapses >50% with inspiration. There is no pericardial effusion.
--- NOTE | 2017-11-27 16:26 | CP.PCM.DIS ---
<Sadaf Moy - Last Filed: 11/27/17 16:18> Provider - Provider Date of Admission: 11/26/17 14:58 Attending physician: Ely Wade DO Primary care physician: Sheeba Elizabeth MD Consults: Cardio Time Spent in preparation of Discharge (in minutes): 70 Hospital Course - Lab Results Lab Results: Most Recent Lab Values WBC 7.1 10^3/ul (4.5-11.0) 11/27/17 06:30 RBC 4.55 10^6/uL (3.5-6.1) 11/27/17 06:30 Hgb 9.8 g/dL (12.0-16.0) L 11/27/17 06:30 Hct 32.7 % (36.0-48.0) L 11/27/17 06:30 MCV 71.9 fl (80.0-105.0) L 11/27/17 06:30 MCH 21.5 pg (25.0-35.0) L 11/27/17 06:30 MCHC 30.0 g/dl (31.0-37.0) L 11/27/17 06:30 RDW 18.9 % (11.5-14.5) H 11/27/17 06:30 Plt Count 443 10^3/uL (120.0-450.0) 11/27/17 06:30 MPV 10.3 fl (7.0-11.0) 11/26/17 07:00 Gran % 64.8 % (50.0-68.0) 11/27/17 06:30 Lymph % (Auto) 20.9 % (22.0-35.0) L 11/27/17 06:30 Leon % (Auto) 10.0 % (1.0-6.0) H 11/27/17 06:30 Eos % (Auto) 3.7 % (1.5-5.0) 11/27/17 06:30 Baso % (Auto) 0.6 % (0.0-3.0) 11/27/17 06:30 Gran # 4.59 (1.4-6.5) 11/27/17 06:30 Lymph # (Auto) 1.5 (1.2-3.4) 11/27/17 06:30 Leon # (Auto) 0.7 (0.1-0.6) H 11/27/17 06:30 Eos # (Auto) 0.3 (0.0-0.7) 11/27/17 06:30 Baso # (Auto) 0.04 K/mm3 (0.0-2.0) 11/27/17 06:30 PT 12.1 SECONDS (9.4-12.5) 11/25/17 10:30 INR 1.05 11/25/17 10:30 Sodium 140 mmol/L (132-148) 11/27/17 06:30 Potassium 4.5 mmol/L (3.6-5.0) 11/27/17 06:30 Chloride 101 mmol/L (98-107) 11/27/17 06:30 Carbon Dioxide 31 mmol/L (21-33) 11/27/17 06:30 Anion Gap 13 (10-20) 11/27/17 06:30 BUN 25 mg/dL (7-21) H 11/27/17 06:30 Creatinine 1.0 mg/dl (0.7-1.2) 11/27/17 06:30 Est GFR ( Amer) > 60 11/27/17 06:30 Est GFR (Non-Af Amer) 52 11/27/17 06:30 Random Glucose 87 mg/dL (70-110) 11/27/17 06:30 Calcium 9.6 mg/dL (8.4-10.5) 11/27/17 06:30 Phosphorus 4.2 mg/dL (2.5-4.5) 11/27/17 06:30 Magnesium 2.2 mg/dL (1.7-2.2) 11/27/17 06:30 Total Bilirubin 0.6 mg/dL (0.2-1.3) 11/27/17 06:30 AST 28 U/L (14-36) 11/27/17 06:30 ALT 20 U/L (7-56) 11/27/17 06:30 Alkaline Phosphatase 81 U/L (38-126) 11/27/17 06:30 Lactate Dehydrogenase 1252 U/L (333-699) H 11/25/17 10:30 Total Creatine Kinase 59 U/L (35-230) 11/25/17 10:30 Troponin I < 0.01 ng/mL 11/25/17 22:36 NT-Pro-B Natriuret Pep 1210 pg/mL (0-450) H 11/25/17 10:30 Total Protein 7.3 g/dL (5.8-8.3) 11/27/17 06:30 Albumin 3.8 g/dL (3.0-4.8) 11/27/17 06:30 Globulin 3.5 gm/dL 11/27/17 06:30 Albumin/Globulin Ratio 1.1 (1.1-1.8) 11/27/17 06:30 Free T4 1.48 ng/dL (0.78-2.19) 11/25/17 16:15 TSH 3rd Generation 5.39 mIU/mL (0.46-4.68) H 11/25/17 16:15 Urine Color Yellow (YELLOW) 11/25/17 14:15 Urine Appearance Clear (CLEAR) 11/25/17 14:15 Urine pH 6.0 (4.7-8.0) 11/25/17 14:15 Ur Specific Bronte 1.025 (1.005-1.035) 11/25/17 14:15 Urine Protein Trace mg/dL (<30 mg/dL) H 11/25/17 14:15 Urine Glucose (UA) Negative mg/dL (NEGATIVE) 11/25/17 14:15 Urine Ketones Negative mg/dL (NEGATIVE) 11/25/17 14:15 Urine Blood Negative (NEGATIVE) 11/25/17 14:15 Urine Nitrate Negative (NEGATIVE) 11/25/17 14:15 Urine Bilirubin Negative (NEGATIVE) 11/25/17 14:15 Urine Urobilinogen 0.2 E.U./dL (<1 E.U./dL) 11/25/17 14:15 Ur Leukocyte Esterase Moderate Oniel/uL (NEGATIVE) H 11/25/17 14:15 Urine RBC 0 - 2 /hpf (0-2) 11/25/17 14:15 Urine WBC 5 - 10 /hpf (0-6) 11/25/17 14:15 Ur Epithelial Cells 4 - 5 /hpf (0-5) 11/25/17 14:15 Urine Bacteria Mod (NEG) 11/25/17 14:15 - Hospital Course Hospital Course: Ms. Astorga is a 87yo female PMHx HTN, HLD, thrombocytosis, severe MR who presented to the ED with chest pressure for 1 week. Patient reported she decided to come in today as the pressure was not improving. She described it as a tightness in the middle of her chest rated 8-9/10 in intensity. The tightness was intermittent with no identifiable exacerbating or alleviating factors. Patient reported that sometimes the chest pressure would radiate to her right side. She also had dyspnea on exertion and was able to ambulate 1/2 a block prior to feeling short of breath. She admitted to some orthopnea at times but uses 1 pillow to sleep generally; the night prior to admission patient tried to sleep with 2 pillows but it did not help her chest tightness. She admitted to some b/l ankle swelling at the end of the day. She denied fever, chills, dizziness, cough, abd pain, nausea, vomiting, bowel/bladder complaints, pain in legs b/lPatient denied any recent travel/sick contacts. Of note patient was recently seen by Dr. Chilel 2 weeks ago to have a loop recorded placed as she was complaining of chest tightness and palpitations. Patient also had a stress test 01/01/17 showing normal mycocardial perfusion with EF 72% In the ED, patient was lasix, albuterol, nitroglycerin, and morphine. Patient's labs showed a BNP of 1210. Her vitals showed a pulse of 56 and a blood pressure of 196/74. She was admitted possible CHF exacerbation. Upon admission, patient reported that her symptoms of chest tightness had subsided. She denied any shortness of breath at rest, dizziness, or palpitations. Cardiology was consulted. Dr. Chilel recommended continuation of metoprolol and lasix 40mg pid. On board with d/c and follow up out patient. CXR showed mild increase in pulmonary venous congestion. ECHO showed EF 55-60%, moderate mitral regurg, moderate triscupid regurg, moderate pulmonary hypertension. A walk test was performed on the patient. She had a resting 02 sat of 97% and an 02 sat of 93% after walking. PT was ordered for the patient. They reported some dyspnea on exertion and recommended PT for the patient upon discharge. Patient was discharged with medication instructions as well as instructions to follow up with primary care physician and her art objects supervisor Dr. Chilel. She was able to comprehend the instructions. Discharge Exam - Head Exam Head Exam: ATRAUMATIC, NORMOCEPHALIC - Eye Exam Eye Exam: EOMI Pupil Exam: NORMAL ACCOMODATION, PERRL - ENT Exam ENT Exam: Mucous Membranes Moist - Respiratory Exam Respiratory Exam: Clear to PA & Lateral, NORMAL BREATHING PATTERN. absent: Rales, Rhonchi, Wheezes, Stridor - Cardiovascular Exam Cardiovascular Exam: REGULAR RHYTHM, +S1, +S2. absent: Gallop, JVD, Rubs - GI/Abdominal Exam GI & Abdominal Exam: Normal Bowel Sounds, Soft. absent: Distended, Firm, Tenderness - Extremities Exam Extremities exam: normal inspection - Neurological Exam Neurological exam: Alert, Oriented x3 - Psychiatric Exam Psychiatric exam: Normal Affect, Normal Mood Discharge Plan - Discharge Medications Prescriptions: Aspirin [Ecotrin] 81 mg PO DAILY #30 tabec Furosemide [Lasix] 40 mg PO DAILY #14 tab Metoprolol Tartrate 50 mg PO Q12 #28 tablet - Follow Up Plan Condition: GOOD Disposition: HOME/ ROUTINE Instructions: Shortness of Breath (Dyspnea) (DC), Chest Pain (DC) Additional Instructions: Upon discharge please continue take the following medications as prescribed: -Metoprolol Tartrate 50mg 1 tab by mouth twice daily -ASA 81mg 1 tab by mouth daily -Lasix 40mg 1 tab by mouth daily STOP taking your home Metoprolol Succinate. Please keep your appointment with Cardiology Dr. Chilel on December 10, 2017. Follow up with primary care doctor within 3-5 days. If symptoms return, please return to emergency room. Instructions discussed in detail with patient who understands and agrees. Referrals: Sheeba Johns MD [Primary Care Provider] - <Ely Wade - Last Filed: 12/01/17 17:48> Provider - Provider Date of Admission: 11/26/17 14:58 Attending physician: Ely Wade DO Primary care physician: Sheeba Elizabeth MD Hospital Course - Lab Results Lab Results: Most Recent Lab Values WBC 7.1 10^3/ul (4.5-11.0) 11/27/17 06:30 RBC 4.55 10^6/uL (3.5-6.1) 11/27/17 06:30 Hgb 9.8 g/dL (12.0-16.0) L 11/27/17 06:30 Hct 32.7 % (36.0-48.0) L 11/27/17 06:30 MCV 71.9 fl (80.0-105.0) L 11/27/17 06:30 MCH 21.5 pg (25.0-35.0) L 11/27/17 06:30 MCHC 30.0 g/dl (31.0-37.0) L 11/27/17 06:30 RDW 18.9 % (11.5-14.5) H 11/27/17 06:30 Plt Count 443 10^3/uL (120.0-450.0) 11/27/17 06:30 MPV 10.3 fl (7.0-11.0) 11/26/17 07:00 Gran % 64.8 % (50.0-68.0) 11/27/17 06:30 Lymph % (Auto) 20.9 % (22.0-35.0) L 11/27/17 06:30 Leon % (Auto) 10.0 % (1.0-6.0) H 11/27/17 06:30 Eos % (Auto) 3.7 % (1.5-5.0) 11/27/17 06:30 Baso % (Auto) 0.6 % (0.0-3.0) 11/27/17 06:30 Gran # 4.59 (1.4-6.5) 11/27/17 06:30 Lymph # (Auto) 1.5 (1.2-3.4) 11/27/17 06:30 Leon # (Auto) 0.7 (0.1-0.6) H 11/27/17 06:30 Eos # (Auto) 0.3 (0.0-0.7) 11/27/17 06:30 Baso # (Auto) 0.04 K/mm3 (0.0-2.0) 11/27/17 06:30 PT 12.1 SECONDS (9.4-12.5) 11/25/17 10:30 INR 1.05 11/25/17 10:30 Sodium 140 mmol/L (132-148) 11/27/17 06:30 Potassium 4.5 mmol/L (3.6-5.0) 11/27/17 06:30 Chloride 101 mmol/L (98-107) 11/27/17 06:30 Carbon Dioxide 31 mmol/L (21-33) 11/27/17 06:30 Anion Gap 13 (10-20) 11/27/17 06:30 BUN 25 mg/dL (7-21) H 11/27/17 06:30 Creatinine 1.0 mg/dl (0.7-1.2) 11/27/17 06:30 Est GFR ( Amer) > 60 11/27/17 06:30 Est GFR (Non-Af Amer) 52 11/27/17 06:30 Random Glucose 87 mg/dL (70-110) 11/27/17 06:30 Calcium 9.6 mg/dL (8.4-10.5) 11/27/17 06:30 Phosphorus 4.2 mg/dL (2.5-4.5) 11/27/17 06:30 Magnesium 2.2 mg/dL (1.7-2.2) 11/27/17 06:30 Total Bilirubin 0.6 mg/dL (0.2-1.3) 11/27/17 06:30 AST 28 U/L (14-36) 11/27/17 06:30 ALT 20 U/L (7-56) 11/27/17 06:30 Alkaline Phosphatase 81 U/L (38-126) 11/27/17 06:30 Lactate Dehydrogenase 1252 U/L (333-699) H 11/25/17 10:30 Total Creatine Kinase 59 U/L (35-230) 11/25/17 10:30 Troponin I < 0.01 ng/mL 11/25/17 22:36 NT-Pro-B Natriuret Pep 1210 pg/mL (0-450) H 11/25/17 10:30 Total Protein 7.3 g/dL (5.8-8.3) 11/27/17 06:30 Albumin 3.8 g/dL (3.0-4.8) 11/27/17 06:30 Globulin 3.5 gm/dL 11/27/17 06:30 Albumin/Globulin Ratio 1.1 (1.1-1.8) 11/27/17 06:30 Free T4 1.48 ng/dL (0.78-2.19) 11/25/17 16:15 TSH 3rd Generation 5.39 mIU/mL (0.46-4.68) H 11/25/17 16:15 Urine Color Yellow (YELLOW) 11/25/17 14:15 Urine Appearance Clear (CLEAR) 11/25/17 14:15 Urine pH 6.0 (4.7-8.0) 11/25/17 14:15 Ur Specific Bronte 1.025 (1.005-1.035) 11/25/17 14:15 Urine Protein Trace mg/dL (<30 mg/dL) H 11/25/17 14:15 Urine Glucose (UA) Negative mg/dL (NEGATIVE) 11/25/17 14:15 Urine Ketones Negative mg/dL (NEGATIVE) 11/25/17 14:15 Urine Blood Negative (NEGATIVE) 11/25/17 14:15 Urine Nitrate Negative (NEGATIVE) 11/25/17 14:15 Urine Bilirubin Negative (NEGATIVE) 11/25/17 14:15 Urine Urobilinogen 0.2 E.U./dL (<1 E.U./dL) 11/25/17 14:15 Ur Leukocyte Esterase Moderate Oniel/uL (NEGATIVE) H 11/25/17 14:15 Urine RBC 0 - 2 /hpf (0-2) 11/25/17 14:15 Urine WBC 5 - 10 /hpf (0-6) 11/25/17 14:15 Ur Epithelial Cells 4 - 5 /hpf (0-5) 11/25/17 14:15 Urine Bacteria Mod (NEG) 11/25/17 14:15 Attending/Attestation - Attestation I have personally seen and examined this patient.: Yes I have fully participated in the care of the patient.: Yes I have reviewed all pertinent clinical information, including history, physical exam and plan: Yes Notes (Text): Patient seen and examined by me with resident at 9:30AM 11/27/17. Case including discharge plan discussed with resident. Agree with above with following additions/corrections Patient is an 87-year-old female with past medical history significant for hypertension, hyperlipidemia, thrombocytosis, palpitations, and severe mitral regurgitation that presents to the emergency room with worsening of chest pressure and shortness of breath. Please see H&P for further details. Patient was admitted with chest tightness and shortness of breath. BNP was elevated. Patient started on Lasix. Home metoprolol and ASA was continued. 2D echo was ordered. Cardiology was consulted. 2d echo per art objects supervisor shows EF of 55-60% and moderate pulmonary hypertension as well as grade 3 diastolic dysfunction. Patient was found to have hypoxia after ambulating. Diuresis was continued. Hypoxemia improved. Patient's shortness of breath and chest tightness resolved. Patient was ambulating well. Patient was cleared for discharge by cardiology. Xase was discussed with Dr. Chilel. Per Dr. Chilel, patient to take lasix 40mg PO daily at home and patient to be on metoprolol tartrate 50mg BID, not metoprolol succinate. Patient was given new prescription. Patient was found to have abnormal urinalysis, however patient was asymptomatic and urine culture showed no growth. Patient was doing well. Patient was discharged home. On day of discharge, patient stated she was feeling much better. Chest tightness and shortness of breath resolved. No dizziness. No headaches or lightheadedness. No nausea, vomiting, or abdominal pain. No fevers or chills. No dysuria. No diarrhea or constipation. Physical exam: Gen: Awake and alert sitting up in bed in no acute distress HEENT: Normocephalic atraumatic. Extraocular muscles intact, pupils equal reactive. Oropharynx is pink and moist, no pharyngeal erythema or exudate appreciated. Neck is supple. Cardiovascular: Bradycardic S1, S2. No murmurs, rubs, or gallops appreciated, trace lower extremity pitting edema. Pulmonary: Normal respiratory effort. No rhonchi, rales or wheezing appreciated. Gastrointestinal: Soft, nontender, nondistended, positive bowel sounds all 4 quadrants, no guarding. Musculoskeletal: Normal range of motion all extremities, no calf tenderness Central nervous system: AAO x 3. 5/5 muscle strength all extremities. CN 2-12 grossly intact Dermatologic: Skin warm and dry Please see chart for full details. Follow up instructions. Patient to follow up with PMD within 3-5 days. Patient to follow up with art objects supervisor Dr. Chilel on December 10, 2017. Patient to stop her metoprolol succinate and take new prescription of metoprolol tartrate. All instructions explained to patient in detail. Patient both understands and agrees to all instructions. Time spent in discharging the patient including chart review, medication reconciliation, discussion with the patient, medical or surgical instrument maker, consultants, and nursing staff was approximately 40 minutes.
[2017-11-27 19:15] VITALS: BP 130/53; PULSE 50; RESP 20; TEMP 98; O2SAT 95
--- NOTE | 2017-12-05 07:15 | ED PDOC ---
Arrival/HPI - General Chief Complaint: Shortness Of Breath Time Seen by Provider: 11/25/17 10:04 - History of Present Illness Narrative History of Present Illness (Text): 12/05/17 87 year old female, whose PMH includes CHF, hypertension, hyperlipidemia, and severe MR, who presents to the emergency department complaining of chest pressure since one week. Patient reports she had trouble sleeping flat one day ago and decided to come to the emergency department for further evaluation. Patient denies any fever, chills, dizziness, nausea, vomiting, diarrhea, or other complaints. Time/Duration: 1 week Symptom Onset: Sudden Symptom Course: Unchanged Quality: Pressure Context: Home Past Medical History - Provider Review Nursing Documentation Reviewed: Yes - Infectious Disease Hx of Infectious Diseases: None - Cardiac Hx Hypertension: Yes - Pulmonary Hx Respiratory Disorders: Yes (Mild shortness of breath with exertion.) - Neurological Hx Neurological Disorder: No - HEENT Hx HEENT Disorder: No - Renal Hx Renal Disorder: No - Endocrine/Metabolic Hx Endocrine Disorders: No - Hematological/Oncological Hx Blood Disorders: Yes (vitamin b12 deficiency) Hx Anemia: Yes (Hx of blood transfusion.) - Integumentary Hx Dermatological Disorder: No - Musculoskeletal/Rheumatological Hx Musculoskeletal Disorders: Yes Hx Falls: Yes - Gastrointestinal Hx Gastrointestinal Disorders: No - Genitourinary/Gynecological Hx Genitourinary Disorders: No - Psychiatric Hx Emotional Abuse: No Hx Physical Abuse: No Hx Substance Use: No - Surgical History Hx Cardiac Catheterization: Yes (2012) Hx Hysterectomy: Yes - Anesthesia Hx Anesthesia Reactions: No Hx Malignant Hyperthermia: No - Suicidal Assessment Plan: No Suicide Risk Precautions: None Family/Social History - Physician Review Nursing Documentation Reviewed: Yes Family/Social History: Unknown Family HX Smoking Status: Former Smoker Hx Alcohol Use: No Hx Substance Use: No Hx Substance Use Treatment: No Allergies/Home Meds Allergies/Adverse Reactions: Allergies No Known Allergies Allergy (Verified 11/25/17 17:11) Review of Systems - Physician Review All systems were reviewed & negative as marked: Yes - Review of Systems Constitutional: absent: Fevers Cardiovascular: Chest Pain (pressure) Gastrointestinal: absent: Abdominal Pain Physical Exam Vital Signs Reviewed: Yes Vital Signs Temp Pulse Resp BP Pulse Ox 11/25/17 16:17 98.2 F 50 L 18 139/50 L 95 11/25/17 13:57 98.2 F 56 L 18 133/55 L 95 11/25/17 12:56 112/80 11/25/17 12:19 98 F 50 L 18 145/57 L 100 11/25/17 10:50 55 L 20 140/51 L 93 L 11/25/17 09:59 98.6 F 53 L 20 147/59 L 95 Temperature: Afebrile Blood Pressure: Hypotensive Pulse: Bradycardic Respiratory Rate: Normal Appearance: Positive for: Well-Appearing, Non-Toxic, Comfortable Pain Distress: None Mental Status: Positive for: Alert and Oriented X 3 - Systems Exam Head: Present: Atraumatic, Normocephalic Pupils: Present: PERRL Extroacular Muscles: Present: EOMI Conjunctiva: Present: Normal Neck: Present: JVD Respiratory/Chest: Present: Rales (bilateral bases ). No: Clear to Auscultation , Respiratory Distress, Accessory Muscle Use Cardiovascular: Present: Regular Rate and Rhythm, Normal S1, S2. No: Murmurs Abdomen: Present: Normal Bowel Sounds. No: Tenderness, Distention, Peritoneal Signs, Rebound, Guarding Lower Extremity: Present: Normal Inspection. No: Edema Neurological: Present: GCS=15, CN II-XII Intact, Speech Normal Skin: Present: Warm, Dry, Normal Color. No: Rashes Psychiatric: Present: Alert, Oriented x 3, Normal Insight, Normal Concentration Medical Decision Making ED Course and Treatment: 12/05/17 Impression: 87 year old female with JVD and rales at bilateral bases complaining of chest pain pressure since one week. Plan: -- EKG -- Chest X-ray -- Lasix, Nitrostat, Norasc, Toprol, Tylenol -- Labs -- Urinalysis -- Reassess and disposition - Lab Interpretations Microbiology Results: Microbiology Results 11/25/17 14:15 Urine,Clean Catch Urine Culture - Final No Growth (<1,000 CFU/ML) Lab Results: 11/26/17 07:00 11/26/17 07:00 Lab Results 11/26/17 07:00: Sodium 142, Potassium 4.6, Chloride 107, Carbon Dioxide 28, Anion Gap 11, BUN 16, Creatinine 1.1, Est GFR ( Amer) 57, Est GFR (Non- Af Amer) 47, Random Glucose 84, Calcium 9.2, Phosphorus 4.1, Magnesium 2.0, Total Bilirubin 0.6, AST 32, ALT 19, Alkaline Phosphatase 73, Total Protein 6.5 , Albumin 3.4, Globulin 3.1, Albumin/Globulin Ratio 1.1 11/26/17 07:00: WBC 6.7, RBC 4.10, Hgb 8.7 L, Hct 29.8 L, MCV 72.7 L, MCH 21.2 L , MCHC 29.2 L, RDW 19.3 H, Plt Count 442, MPV 10.3, Gran % 67.4, Lymph % (Auto) 16.7 L, [place] % (Auto) 12.1 H, Eos % (Auto) 3.4, Baso % (Auto) 0.4, Gran # 4.53, Lymph # (Auto) 1.1 L, [place] # (Auto) 0.8 H, Eos # (Auto) 0.2, Baso # (Auto) 0.03 11/25/17 22:36: Troponin I < 0.01 11/25/17 16:15: Free T4 1.48, TSH 3rd Generation 5.39 H 11/25/17 16:15: Troponin I < 0.01 11/25/17 14:15: Urine Color Yellow, Urine Appearance Clear, Urine pH 6.0, Ur Specific Watkins 1.025, Urine Protein Trace H, Urine Glucose (UA) Negative, Urine Ketones Negative, Urine Blood Negative, Urine Nitrate Negative, Urine Bilirubin Negative, Urine Urobilinogen 0.2, Ur Leukocyte Esterase Moderate H, Urine RBC 0 - 2, Urine WBC 5 - 10, Ur Epithelial Cells 4 - 5, Urine Bacteria Mod 11/25/17 10:30: Sodium 143, Potassium 4.5, Chloride 110 H, Carbon Dioxide 25, Anion Gap 12, BUN 11, Creatinine 0.9, Est GFR ( Amer) > 60, Est GFR (Non- Af Amer) 59, Random Glucose 102, Calcium 9.4, Phosphorus 3.1, Magnesium 2.1, Total Bilirubin 0.5, AST 32, ALT 20, Alkaline Phosphatase 74, Lactate Dehydrogenase 1252 H, Total Creatine Kinase 59, Troponin I < 0.01, NT-Pro-B Natriuret Pep 1210 H, Total Protein 7.2, Albumin 3.8, Globulin 3.4, Albumin/ Globulin Ratio 1.1 11/25/17 10:30: PT 12.1, INR 1.05 11/25/17 10:30: WBC 7.4, RBC 4.29, Hgb 9.3 L, Hct 31.0 L, MCV 72.3 L, MCH 21.7 L , MCHC 30.0 L, RDW 19.2 H, Plt Count 468 H, Gran % 74.2 H, Lymph % (Auto) 13.5 L , [place] % (Auto) 8.7 H, Eos % (Auto) 3.1, Baso % (Auto) 0.5, Gran # 5.48, Lymph # (Auto) 1.0 L, [place] # (Auto) 0.6, Eos # (Auto) 0.2, Baso # (Auto) 0.04 I have reviewed the lab results: Yes - RAD Interpretation Radiology Orders: 11/25/17 10:28 CHEST PORTABLE [RAD] Stat 11/26/17 15:00 CHEST TWO VIEWS (PA/LAT) [RAD] Routine Paper Pattern Folder: Radiologist - EKG Interpretation Interpreted by ED Physician: Yes Type: 12 lead EKG - Medication Orders Current Medication Orders: Discontinued Medications Acetaminophen (Tylenol 325mg Tab) 650 mg PO Q6H PRN PRN Reason: Pain, moderate (4-7) Last Admin: 11/26/17 08:17 Dose: 650 mg [facility] Pain/Vitals Document 11/26/17 08:17 [facility] (Rec: 11/26/17 08:17 [facility] Pain Reassessment Is This A Pain ReAssessment? No Presence of Pain Presence of Pain Yes Pain Scale Used Pain Scale Used Numeric Location Pain Location Body Icing Maker Description Intermittent Intensity 4 Scale Used Numeric Pain Behavior Irritability Alleviating Factors Medication Re-Assess: [facility] Pain/Vitals Document 11/26/17 09:17 [facility] (Rec: 11/26/17 12:16 [facility] Pain Reassessment Is This A Pain ReAssessment? Yes Sleep Is patient sleeping during reassessment? No Presence of Pain Presence of Pain No Pain Scale Used Pain Scale Used Numeric Albuterol Sulfate (Albuterol 0.083% Inhal Isha (2.5 Mg/3 Ml) Ud) 2.5 mg INH STAT STA Stop: 11/25/17 10:38 Last Admin: 11/25/17 10:48 Dose: 2.5 mg Amlodipine Besylate (Norvasc) 10 mg PO DAILY [facility] Last Admin: 11/27/17 11:11 Dose: 10 mg MAR Blood Pressure Document 11/27/17 11:11 RV (Rec: 11/27/17 11:12 RV [id number]) Blood Pressure Blood Pressure (100/60-150/90) 132/56 Aspirin (Ecotrin) 81 mg PO DAILY [facility] Last Admin: 11/27/17 11:12 Dose: 81 mg Furosemide (Lasix) 40 mg IVP STAT STA Stop: 11/25/17 12:35 Last Admin: 11/25/17 12:56 Dose: 40 mg MAR Blood Pressure Document 11/25/17 12:56 SRE (Rec: 11/25/17 12:57 SRE [id number]) Blood Pressure Blood Pressure (100/60-150/90) 112/80 IVP Administration Document 11/25/17 12:56 SRE (Rec: 11/25/17 12:57 SRE [id number]) Charges for Administration # of IVP Administrations 1 Furosemide (Lasix) 20 mg IVP DAILY [facility] Last Admin: 11/26/17 08:59 Dose: 20 mg MAR Blood Pressure Document 11/26/17 08:59 [facility] (Rec: 11/26/17 08:59 [facility]) Blood Pressure Blood Pressure (100/60-150/90) 154/50 IVP Administration Document 11/26/17 08:59 [facility] (Rec: 11/26/17 08:59 [facility]) Charges for Administration # of IVP Administrations 1 Furosemide (Lasix) 40 mg IVP BID [facility] Last Admin: 11/26/17 17:25 Dose: 40 mg MAR Blood Pressure Document 11/26/17 17:25 [facility] (Rec: 11/26/17 17:26 [facility]) Blood Pressure Blood Pressure (100/60-150/90) 153/67 IVP Administration Document 11/26/17 17:25 [facility] (Rec: 11/26/17 17:26 [facility]) Charges for Administration # of IVP Administrations 1 Furosemide (Lasix) 20 mg IVP ONCE ONE Stop: 11/26/17 10:21 Last Admin: 11/26/17 10:50 Dose: 20 mg MAR Blood Pressure Document 11/26/17 10:50 [facility] (Rec: 11/26/17 10:51 [facility]) Blood Pressure Blood Pressure (100/60-150/90) 154/50 IVP Administration Document 11/26/17 10:50 [facility] (Rec: 11/26/17 10:51 [facility]) Charges for Administration # of IVP Administrations 1 Furosemide (Lasix) 40 mg IVP ONCE ONE Stop: 11/26/17 14:01 Last Admin: 11/26/17 14:08 Dose: Furosemide (Lasix) 40 mg PO DAILY [facility] Last Admin: 11/27/17 11:12 Dose: 40 mg MAR Blood Pressure Document 11/27/17 11:12 RV (Rec: 11/27/17 11:12 RV [id number]) Blood Pressure Blood Pressure (100/60-150/90) 132/56 Heparin Sodium (Porcine) (Heparin) 5,000 units SC Q8 [facility] PRN Reason: Protocol Last Admin: 11/27/17 14:14 Dose: 5,000 units Subcutaneous Administrations Document 11/27/17 14:14 RV (Rec: 11/27/17 14:14 RV [id number]) Injection Site MAR Injection Site Left Abdomen Charges for Administration # of Subcutaneous Administrations 1 Sodium Chloride (Sodium Chloride 0.9%) 500 mls @ 999 mls/hr IV .Q31M STA Stop: 11/25/17 11:03 Last Admin: 11/25/17 10:46 Dose: 999 mls/hr eMAR Start Stop Document 11/25/17 10:46 SRE (Rec: 11/25/17 10:47 SRE [id number]) Intravenous Solution Start Date 11/25/17 Start Time 10:47 End Date 11/25/17 End time 11:20 Total Infusion Time 33 Levothyroxine Sodium (Synthroid) 25 mcg PO 0600 [facility] Last Admin: 11/27/17 05:41 Dose: 25 mcg Metoprolol Succinate (Toprol Xl) 50 mg PO BID [facility] Last Admin: 11/27/17 11:12 Dose: 50 mg MAR Pulse and Blood Pressure Document 11/27/17 11:12 RV (Rec: 11/27/17 11:12 RV [id number]) Pulse Pulse Rate (60-90) 42 Blood Pressure Blood Pressure (100/60-150/90) 132/56 Morphine Sulfate (Morphine) 2 mg IVP STAT STA Stop: 11/25/17 10:33 Last Admin: 11/25/17 10:49 Dose: 2 mg [facility] Pain Assessment Document 11/25/17 10:49 SRE (Rec: 11/25/17 10:49 SRE [id number]) Pain Reassessment Is this a pain reassessment? Yes Sleep Is patient sleeping during reassessment? No Presence of Pain Presence of Pain No IVP Administration Document 11/25/17 10:49 SRE (Rec: 11/25/17 10:49 SRE [id number]) Charges for Administration # of IVP Administrations 1 Re-Assess: ANDREI Pain Assessment Document 11/25/17 11:49 SRE (Rec: 11/25/17 13:55 SRE [id number]) Pain Reassessment Is this a pain reassessment? Yes Sleep Is patient sleeping during reassessment? No Presence of Pain Presence of Pain No Nitroglycerin (Nitrostat Sl Tab) 0.4 mg SL STAT STA Stop: 11/25/17 10:33 Last Admin: 11/25/17 10:40 Dose: 0.4 mg Ondansetron HCl (Zofran Inj) 4 mg IVP STAT STA Stop: 11/25/17 10:33 Last Admin: 11/25/17 10:48 Dose: 4 mg IVP Administration Document 11/25/17 10:48 SRE (Rec: 11/25/17 10:48 SRE [id number]) Charges for Administration # of IVP Administrations 1 Pneumococcal Polyvalent Vaccine (Pneumovax 23 Vaccine) 0.5 ml IM .ONCE ONE Stop: 11/25/17 18:50 Disposition/Present on Arrival - Present on Arrival Any Indicators Present on Arrival: No History of DVT/PE: No History of Uncontrolled Diabetes: No Urinary Catheter: No History of Decub. Ulcer: No History Surgical Site Infection Following: None - Disposition Have Diagnosis and Disposition been Completed?: Yes Diagnosis: CHF (congestive heart failure), Chest pain Disposition: HOSPITALIZED Disposition Time: 15:00 Patient Plan: Admission, Telemetry Condition: GOOD
--- NOTE | 2017-12-05 12:11 | PQF ---
PROVIDER RESPONSE TEXT: Patient had acute on chronic diastolic CHF exacerbation. REVIEWER QUERY TEXT: CHF Acuity and Type Congestive Heart Failure is documented in the Medical Record. Please document the type and acuity (in cludes probable or suspected) Such as: Type: -- Systolic -- Diastolic -- Combined -- Other, please specify Acuity: -- Acute -- Chronic -- Acute on chronic -- Other, please specify Also please document the underlying cause of the CHF (includes probable or suspected) The patient's Clinical Indicators include: Patient admitted with MORRIS/SOB, swelling lower extremities.. BNP elevated, treated with Lasix with improvement of symptoms. Previous echo with EF 65%. Documentation of acute decompensated CHF. Please specify type of CHF present. Query created by: Esperanza Rojo on 12/05/2017 11:48 AM Electronically signed by: Ely Wade DO 12/05/2017 12:08 PM
== END 2017-11-27 19:39 | disposition home or self-care (01) | DRG 293 ==
LOC: ED 09:59 → ERH 12:38 → 3RSO 16:57 → OBSVTOIN 11-26 14:58
PROVIDERS: ADMIT Internal Medicine; ATTEND Hospitalist
DX: I11.0 Hypertensive heart disease with heart failure (principal); I50.33 Acute on chronic diastolic (congestive) heart failure; I48.0 Paroxysmal atrial fibrillation; I45.10 Unspecified right bundle-branch block; I25.10 Atherosclerotic heart disease of native coronary artery without angina pectoris; I08.0 Rheumatic disorders of both mitral and aortic valves; I27.20 Pulmonary hypertension, unspecified; E78.5 Hyperlipidemia, unspecified; D64.9 Anemia, unspecified; R00.1 Bradycardia, unspecified; Z79.899 Other long term (current) drug therapy; Z82.49 Family history of ischemic heart disease and other diseases of the circulatory system; Z80.0 Family history of malignant neoplasm of digestive organs; Z87.891 Personal history of nicotine dependence

== ENCOUNTER 2017-12-15 08:32 | Inpatient (IN) | payer MEDICARE, OTHER ==
[2017-12-12 09:48] VITALS: BMI 25.2
--- NOTE | 2017-12-13 05:22 | HP ---
Copied To: Redd Chilel MD Attending MD: Redd Chilel MD REASON FOR ADMISSION: Implantation of permanent pacemaker, sick sinus syndrome, tachy-raphael syndrome. BRIEF CLINICAL HISTORY: An 87-year-old female with a past medical history significant for severe mitral regurgitation, pulmonary hypertension, status post loop recorder because of bradycardia, implanted on 09/08/2017, followup loop recorder interrogation revealed significant tachy-raphael syndrome with significant heart rate in the 30s to 40s, and the patient became symptomatic and dizzy. The patient is being scheduled electively for removal of loop recorder and implantation of pacemaker. PAST MEDICAL HISTORY: Significant for significant mitral regurgitation, tachy-raphael syndrome, dizziness. RECENT CARDIAC WORKUP: As follows: The patient had echocardiogram on 11/26/2017 revealed some moderate tricuspid regurgitation, RV systolic pressure of 60, ejection fraction of 55% to 60%, trace to mild aortic regurgitation, aortic sclerosis versus mild , mild to moderate mitral regurgitation, mild tricuspid regurgitation, RV systolic pressure of 60, moderate pulmonary hypertension. The patient has a loop recorder interrogation multiple times that shows heart rate multiple times slowed down and the patient has become dizzy, correlates with symptoms and heart rate. 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 CURRENT MEDICATIONS: The patient is taking metoprolol 25 mg daily, Lasix 40 mg daily, aspirin 81 mg daily. REVIEW OF SYSTEMS: As per HPI. PHYSICAL EXAMINATION: GENERAL: Height of the patient is 5 feet 2 inches, weight of the patient is 138 pounds, body mass index 25.2 kg/m2. HEENT: PERRLA. Extraocular muscles intact. NECK: Supple. No carotid bruits or thyromegaly. CHEST: Clear to auscultation. HEART: S1 and S2, regular. ABDOMEN: Soft. EXTREMITIES: Clubbing and cyanosis negative. LABORATORY DATA: Blood workup pending. Previous recent blood workup dated 11/27/2017 shows WBC 7.1, hemoglobin 9.8, hematocrit 32.7, platelet count 443. Chemistry showed sodium 140, potassium 4.5, chloride 101, carbon dioxide 31, anion gap of 30, BUN 25, creatinine 1. IMPRESSION: An 87-year-old female with past medical history significant for mitral regurgitation, tachy-raphael syndrome, status post loop recorder 09/08/2017 that shows typical sick sinus syndrome, heart rate goes multiple times 150 and slows down to 30. The patient had a prior noninvasive cardiac workup, as mentioned echo recently, showed ejection fraction 55% to 60%, mild aortic stenosis versus aortic sclerosis, trace to mild aortic regurgitation, mild to moderate mitral regurgitation, moderate tricuspid regurgitation, RV systolic pressure of 60; history of cardiac catheterization in 03/2013, nonobstructive coronary artery disease, only obtuse marginal 1 with 50% stenosis noted. Holter was negative earlier before the implantation of the loop recorder. The patient had a DIAMOND in the past that shows severe mitral regurgitation in the past. RECOMMENDATIONS: We will implant permanent pacemaker. Further recommendation after the pacemaker. We will increase metoprolol to 50 b.i.d. if going back into tachycardia, as well as start amiodarone if going back into atrial fibrillation because the patient cannot be longstanding at all with the Coumadin. We will follow with you. Discussed with the daughter in length in the office; agreed. Risk, benefits and alternatives explained to the patient and patient's family. We will proceed. Thank you, / Tad for providing us the opportunity in taking care of the patient, Yenny Astorga. Redd Chilel MD SALINA
[2017-12-15 09:21] LABS: BASO # 0.04 K/mm3 (0.0-2.0); BASO % 0.5 % (0.0-3.0); EOS # 0.3 (0.0-0.7); EOS % 3.5 % (1.5-5.0); GRAN # 6.3 (1.4-6.5); GRAN % 78.3 % (50.0-68.0); HEMOGLOBIN 9.8 g/dL (12.0-16.0); LYMPH # 0.9 (1.2-3.4); LYMPH % 11.1 % (22.0-35.0); MEAN CELL VOLUME 71.7 fl (80.0-105.0); MEAN CORPUSCULAR HEMOGLOBIN 21.6 pg (25.0-35.0); MEAN CORPUSCULAR HGB CONC 30.2 g/dl (31.0-37.0); MEAN PLATELET VOLUME 10.2 fl (7.0-11.0); MONO # 0.5 (0.1-0.6); MONO % 6.6 % (1.0-6.0); RBC 4.53 10^6/uL (3.5-6.1); RED CELL DISTRIBUTION WIDTH 18.9 % (11.5-14.5)
[2017-12-15 09:29] LABS: INR 1.04; PARTIAL THROMBOPLASTIN TIME 30.5 Seconds (25.1-36.5)
[2017-12-15 10:02] LABS: BLOOD UREA NITROGEN 25 mg/dL (7-21); CALCIUM 9.8 mg/dL (8.4-10.5); GFR AFRICAN-AMERICAN > 60; GFR NON-AFRICAN AMERICAN 52; HDL CHOLESTEROL 34 mg/dL (29-60)
[2017-12-15 10:13] LABS: LDL CHOLESTEROL 92 mg/dL (0-129)
[2017-12-15] MEDS ORDERED: Lidocaine PF 2% (5 ml) Inj (For Cardiac Arrhy) ONE ×2 (11:27→11:28)
[2017-12-15] MEDS ORDERED: Midazolam 2 MG/2 ML VIAL ONE (11:57)
[2017-12-15] MEDS ORDERED: Sodium Chloride 0.9% 1,000 ML IV SCH (13:30)
--- NOTE | 2017-12-15 14:22 | CPOSTOP ---
Copied To: Redd Chilel MD Attending MD: Redd Chilel MD DATE: 12/15/2017 CARDIOVASCULAR LAB POST PROCEDURE NOTE DICTATING PHYSICIAN: Redd Chilel MD REGULATORY COMPLIANCE DIRECTOR: Amanda Manzano, concrete engineering technician, [facility]. TYPE OF ANESTHESIA: Moderate conscious sedation. Total of 2 mg of Versed, 100 mcg of fentanyl given periodically, started 1 mg of Versed and 50 of fentanyl. PRE-PROCEDURE DIAGNOSIS: Sick sinus syndrome status post loop recorder implantation in the past. PROCEDURE PERFORMED: 1. Implantation of permanent pacemaker from [employer]. 2. Removal of loop recorder. FINDINGS: Sick sinus syndrome. FINAL DIAGNOSIS: Sick sinus syndrome. VASCULAR ACCESS SITE: Left subclavian vein for implantation of pacemaker, front of the chest for removal of pacemaker. CLOSURE DEVICE: Permanent suture applied and Dermabond applied. TOTAL RADIATION DOSE: 1473.19 milligray unit. TOTAL FLUORO TIME: 4.5 minutes Redd Chilel MD
--- NOTE | 2017-12-15 14:37 | RAD ---
Date of service: 12/15/2017 HISTORY: Post Pacemaker, r/o pneumothorax COMPARISON: 11/26/2017 FINDINGS: LUNGS: No active pulmonary disease. PLEURA: No significant pleural effusion identified, no pneumothorax apparent. CARDIOVASCULAR: Mild cardiomegaly. Single lead pacemaker in satisfactory position OSSEOUS STRUCTURES: No significant abnormalities. VISUALIZED UPPER ABDOMEN: Normal. OTHER FINDINGS: None. IMPRESSION: Left-sided pacemaker. No evidence of pneumothorax
--- NOTE | 2017-12-15 15:52 | CARDCATH ---
Copied To: Redd Chilel MD Attending MD: Redd Chilel MD PROCEDURE DATE: 12/15/2017 CARDIOVASCULAR PROCEDURE PROCEDURE: Removal of loop recorder (Reveal). TOOL SHAPER SET UP OPERATOR: Redd Chilel MD VISITING TEACHER: LULÚ Hodge, process maintenance technician. SCHEDULING: Elective. BRIEF CLINICAL HISTORY: This is an 87-year-old female with past medical history significant for mitral regurgitation, tricuspid regurgitation, paroxysmal atrial fibrillation, complained of dizziness, near syncope. Loop recorder was implanted and found to be the patient with significant bradycardia, tachycardia, paroxysmal atrial fibrillation, heart rate goes up to 140 and then goes down to 30, consistent with tachybrady syndrome and sick sinus syndrome. So the patient was admitted today for removal of loop recorder implantation of permanent pacemaker. Please see the detailed dictation for implantation of pacemaker. This dictation is only for removal of loop recorder. DESCRIPTION OF PROCEDURE: The patient was brought to the lab assistant, prepped and draped in standard sterile fashion. Left side of the chest where the loop recorder was placed identified under the fluoroscope. A 2% lidocaine was given and a small incision was made and implanted loop recorder was removed. Then, 4-0 silk was applied, to the Surgical wound, and the puncture site was closed with Dermabond. The patient tolerated the procedure well and returned to the floor in stable condition. Please see the detailed dictation of pacemaker in a separate dictation. Redd Chilel MD cc: MD Sinai Diaz MD [facility]
--- NOTE | 2017-12-15 16:10 | CARD ---
APPROVED REPORT Date of service: 12/15/2017 HISTORY The Patient is a 87 year-old female with a history of SSS, tachy raphael syndrome PROCEDURES Insertion Single Chamber Ventricle Pacemaker INDICATIONS SSS Tachy-raphael syndrome PAF with RVS S/p Loop Implantation, ... Bradycardia with rate in 30's and symptomatic. CONSCIOUS SEDATION AGENTS Versed Fentanyl IMPLANTED DEVICES Ventricular Lead .......[employer] 5092-58 Passive Pulse generator......SENSIA [id number] SR IS-! OPERATIVE NOTE The patient was brought to the Cardiac Catheterization Laboratory in a fasting state and was prepped and draped in a sterile manner. The left subclavian region was infiltrated with 2% Lidocaine, subcutaneous anesthesia. A transverse incision was made in the left subclavicular area. The subcutaneous pocket was formed via blunt dissection, Percutaneous venous access was achieved and an introducer sheath was inserted into the Lt Subclavian vein. Through the introducer sheath, the ventricular lead wire was postitioned in the right ventricular apex utilizing fluoroscopic guidance. The ventricular was advanced over the wire under fluoroscopic guidance and positioned in the right ventricle. Capturing and sensing thresholds were verified. THE VENTRICULAR ELECTRODE PARAMETERS R WAVE 6.2 THRESHOLD0.3 RESISTANCE 864 The ventricular lead was then secured using Silk 0. The subcutaneous pocket was irrigated with Betadine. The ventricular lead was attached to the appropriate receptacle on the pulse generator and set screws firmly tightened to insure adequate contact and stability. The lead and pulse generator were placed into the subcutaneous pocket. Sharp and sponge counts were confirmed to be correct. At this time the pocket was closed subcutaneously with a Vicryl 2.0 and the skin was closed with a Vicryl 4.0 .The operative site was dressed in sterile fashion. The patient tolerated the procedure well and was transferred to the floor in stable condition. COMPLICATIONS The patient tolerated the procedure well and there were no complications associated with the procedure. CONCLUSION Successful Implantation Of PPM (VVIR) from [employer] and removal of Loop Recorder. RecommendationS; Increase Metoprolol to 50 mg po BID and add Amiodarone 200 mg pi daily to prevent going into A fib. CC: drs. Elizabeth/ Tad.
[2017-12-15] MEDS ORDERED: Pneumococcal 23-Valent Vaccine IM ONE (19:50)
--- NOTE | 2017-12-15 20:01 | CARD ---
APPROVED REPORT Date of service: 12/15/2017 EKG Measurement Heart [id number] <Conclusion> Electronic ventricular pacemaker
--- NOTE | 2017-12-16 07:23 | CP.PCM.PN ---
Subjective - Date & Time of Evaluation Date of Evaluation: 12/16/17 Time of Evaluation: 07:23 - Subjective Subjective: draft Objective - Vital Signs/Intake and Output Vital Signs (last 24 hours): Temp Pulse Resp BP Pulse Ox 97.8 F 64 20 207/78 H 94 L 12/16/17 00:01 12/16/17 05:02 12/16/17 00:01 12/16/17 05:02 12/15/17 18:00 Intake and Output: 12/16/17 12/16/17 06:59 18:59 Intake Total 240 Balance 240 - Medications Medications: Current Medications Acetaminophen (Tylenol 325mg Tab) 650 mg PO Q6H PRN PRN Reason: Pain, Mild (1-3) Last Admin: 12/16/17 01:24 Dose: 650 mg Amiodarone HCl (Cordarone) 200 mg PO DAILY [facility] Aspirin (Ecotrin) 81 mg PO DAILY [facility] Cephalexin Monohydrate (Keflex) 250 mg PO TID [facility] PRN Reason: Protocol Stop: 12/19/17 23:59 Last Admin: 12/15/17 17:42 Dose: 250 mg Clonidine HCl (Catapres) 0.1 mg PO STAT PRN PRN Reason: Systolic Blood Pressure Furosemide (Lasix) 40 mg PO DAILY [facility] Metoprolol Tartrate (Lopressor) 25 mg PO Q12 [facility] Last Admin: 12/15/17 22:56 Dose: 25 mg - Labs Labs: 12/15/17 09:02 12/15/17 09:02 PT 12.0 SECONDS (9.4-12.5) 12/15/17 09:02 INR 1.04 12/15/17 09:02 APTT 30.5 Seconds (25.1-36.5) 12/15/17 09:02
[2017-12-16] MEDS ORDERED: Morphine 2 mg/ml ISec IVP STA (07:33)
[2017-12-16] MEDS ORDERED: Digoxin 500 mcg/2ml (0.5 mg/2ml) Inj IVP STA (07:33)
[2017-12-16] MEDS ORDERED: Digoxin 500 mcg/2ml (0.5 mg/2ml) Inj ONE (07:37)
[2017-12-16 07:39] LABS: BASO # 0.03 K/mm3 (0.0-2.0); BASO % 0.3 % (0.0-3.0); EOS # 0.2 (0.0-0.7); EOS % 2.1 % (1.5-5.0); GRAN # 9.43 (1.4-6.5); GRAN % 83.5 % (50.0-68.0); HEMOGLOBIN 9.8 g/dL (12.0-16.0); LYMPH % 8.5 % (22.0-35.0); MEAN CORPUSCULAR HEMOGLOBIN 21.4 pg (25.0-35.0); MEAN CORPUSCULAR HGB CONC 29.8 g/dl (31.0-37.0); MEAN PLATELET VOLUME 9.9 fl (7.0-11.0); MONO # 0.6 (0.1-0.6); MONO % 5.6 % (1.0-6.0); RBC 4.57 10^6/uL (3.5-6.1); RED CELL DISTRIBUTION WIDTH 18.6 % (11.5-14.5); WHITE BLOOD COUNT 11.3 10^3/ul (4.5-11.0)
[2017-12-16 07:52] VITALS: PULSE 171
[2017-12-16 07:57] LABS: ALB/GLOB RATIO 1.1 (1.1-1.8); ALBUMIN 4.1 g/dL (3.0-4.8); ALT/SGPT 19 U/L (7-56); AST/SGOT 61 U/L (14-36); BLOOD UREA NITROGEN 17 mg/dL (7-21); CALCIUM 9.9 mg/dL (8.4-10.5); GFR AFRICAN-AMERICAN > 60; GFR NON-AFRICAN AMERICAN 59
[2017-12-16 08:01] LABS: TROPONIN I 0.07 ng/mL
--- NOTE | 2017-12-16 11:26 | CARD ---
APPROVED REPORT Date of service: 12/16/2017 EKG Measurement Heart [id number] <Conclusion> Sinus rhythm with premature atrial complexes Right bundle branch block Abnormal ECG
--- NOTE | 2017-12-16 12:27 | CP.PCM.CON ---
History of Present Illness - History of Present Illness History of Present Illness: Seen and examined at bedside, chart reviewed. Request for consult is for abdominal pain. HPI: This is a 87 year old female with PMH of pulmonary HTN, bradycardia, s/p loop recorder, and severe mitral regurgitation, colon polyps s/p implantation of permanent pacemaker 11/2017. Today this bias binding cutter, patient was found to be in SVT, the patient complained of abdominal pain, as per nursing patient given medication and patient belched with relief. Patient endorses that the pain was sudden this morning, it started on the right upper quaderant and radiated to her side. Never had pain like this before. Currently, she denies ever having dyspepsia or N/V. No c/o change in bowel habits, last BM was this am , no diarrhea or reports of melena or BRBPR. Does endorse weight loss, since August, reports decrease appetite, endorses that she is being followed by PCP for a "borderline thyroid". Last colon was in the as per patient had colon polyps, never had EGD. PMH: as stated above PSH: Loop recorder, denies abdominal surgery Allergies: NKDA Social hX: smoke in the past quit over 50 yrs ago Family HX: son: Throat cancer MEDS: reviewed as per MAR ROS: systems reviewed with positive findings, see HPI Past Patient History - Infectious Disease Hx of Infectious Diseases: None - Past Social History Smoking Status: Never Smoked - CARDIAC Hx Cardiac Disorders: Yes (CAD,ANGINA,LOOP RECORDER) Hx Congestive Heart Failure: Yes Hx Pacemaker: Yes (12-15-17) - PULMONARY Hx Respiratory Disorders: Yes (Mild shortness of breath with exertion. QUIT SMOKING 60 YRS AGO.,) - NEUROLOGICAL Hx Neurological Disorder: No - HEENT Hx HEENT Problems: No - RENAL Hx Chronic Kidney Disease: No - ENDOCRINE/METABOLIC Hx Endocrine Disorders: No - HEMATOLOGICAL/ONCOLOGICAL Hx Blood Disorders: Yes (vitamin b12 deficiency) Hx Anemia: Yes (Hx of blood transfusion.) Other/Comment: THROMBOCYTOPENIA - INTEGUMENTARY Hx Dermatological Problems: Yes (LCW INCISION POST PLACEMENT OF PACEMAKER ) - MUSCULOSKELETAL/RHEUMATOLOGICAL Hx Musculoskeletal Disorders: Yes Hx Falls: Yes - GASTROINTESTINAL Hx Gastrointestinal Disorders: No - GENITOURINARY/GYNECOLOGICAL Hx Genitourinary Disorders: No - PSYCHIATRIC Hx Emotional Abuse: No Hx Physical Abuse: No Hx Substance Use: No - SURGICAL HISTORY Hx Surgeries: Yes (card cath. 2013,PACEMAKER 12-15-17) Hx Cardiac Catheterization: Yes (04-12-13) - ANESTHESIA Hx Anesthesia Reactions: No Hx Malignant Hyperthermia: No Meds Allergies/Adverse Reactions: Allergies Allergy/AdvReac Type Severity Reaction Status Date / Time No Known Allergies Allergy Verified 11/25/17 17:11 - Medications Medications: Current Medications Acetaminophen (Tylenol 325mg Tab) 650 mg PO Q6H PRN PRN Reason: Pain, Mild (1-3) Last Admin: 12/16/17 09:48 Dose: 650 mg Amiodarone HCl (Cordarone) 200 mg PO DAILY [facility] Last Admin: 12/16/17 09:41 Dose: 200 mg Aspirin (Ecotrin) 81 mg PO DAILY [facility] Last Admin: 12/16/17 09:46 Dose: 81 mg Cephalexin Monohydrate (Keflex) 250 mg PO TID [facility] PRN Reason: Protocol Stop: 12/19/17 23:59 Last Admin: 12/16/17 09:46 Dose: 250 mg Clonidine HCl (Catapres) 0.1 mg PO STAT PRN PRN Reason: Systolic Blood Pressure Furosemide (Lasix) 40 mg PO DAILY [facility] Last Admin: 12/16/17 09:46 Dose: 40 mg Metoprolol Tartrate (Lopressor) 50 mg PO Q12 [facility] Last Admin: 12/16/17 09:46 Dose: 50 mg Physical Exam - Constitutional Appears: No Acute Distress - Head Exam Head Exam: NORMOCEPHALIC - Eye Exam Eye Exam: Normal appearance. absent: Scleral icterus - ENT Exam ENT Exam: Mucous Membranes Moist - Neck Exam Neck exam: Positive for: Normal Inspection - Respiratory Exam Respiratory Exam: NORMAL BREATHING PATTERN. absent: Respiratory Distress Additional comments: pacemaker site dry and intact - Cardiovascular Exam Cardiovascular Exam: +S1, +S2 - GI/Abdominal Exam GI & Abdominal Exam: Normal Bowel Sounds, Soft. absent: Guarding, Organomegaly , Rebound, Tenderness - Extremities Exam Extremities exam: Positive for: normal inspection, pedal pulses present. Negative for: calf tenderness, pedal edema - Neurological Exam Neurological exam: Alert, Oriented x3 - Skin Skin Exam: Dry, Warm Results - Vital Signs Recent Vital Signs: Last Vital Signs Temp 98.7 F 12/16/17 06:00 Pulse 77 12/16/17 09:46 Resp 19 12/16/17 06:00 BP 155/76 H 12/16/17 09:46 Pulse Ox 94 L 12/15/17 18:00 - Labs Result Diagrams: 12/16/17 06:30 12/16/17 06:30 Labs: Laboratory Results - last 24 hr 12/15/17 12/16/17 12/16/17 09:30 06:30 06:30 WBC 11.3 H D RBC 4.57 Hgb 9.8 L Hct 32.9 L MCV 72.0 L MCH 21.4 L MCHC 29.8 L RDW 18.6 H Plt Count 542 H MPV 9.9 Gran % 83.5 H Lymph % (Auto) 8.5 L [place] % (Auto) 5.6 Eos % (Auto) 2.1 Baso % (Auto) 0.3 Gran # 9.43 H Lymph # (Auto) 1.0 L [place] # (Auto) 0.6 Eos # (Auto) 0.2 Baso # (Auto) 0.03 Sodium 141 Potassium 4.3 Chloride 106 Carbon Dioxide 25 Anion Gap 15 BUN 17 Creatinine 0.9 Est GFR ( Amer) > 60 Est GFR (Non-Af Amer) 59 Random Glucose 121 H Calcium 9.9 Phosphorus 2.7 Magnesium 2.1 Total Bilirubin 0.6 AST 61 H D ALT 19 Alkaline Phosphatase 84 Troponin I 0.07 D Total Protein 7.9 Albumin 4.1 Globulin 3.8 Albumin/Globulin Ratio 1.1 TSH 3rd Generation Blood Type O NEGATIVE Antibody Screen Negative 12/16/17 06:30 WBC RBC Hgb Hct MCV MCH MCHC RDW Plt Count MPV Gran % Lymph % (Auto) [place] % (Auto) Eos % (Auto) Baso % (Auto) Gran # Lymph # (Auto) [place] # (Auto) Eos # (Auto) Baso # (Auto) Sodium Potassium Chloride Carbon Dioxide Anion Gap BUN Creatinine Est GFR ( Amer) Est GFR (Non-Af Amer) Random Glucose Calcium Phosphorus Magnesium Total Bilirubin AST ALT Alkaline Phosphatase Troponin I Total Protein Albumin Globulin Albumin/Globulin Ratio TSH 3rd Generation 4.89 H Blood Type Antibody Screen Assessment & Plan - Assessment and Plan (Free Text) Assessment: ASSESSMENT: Bradycardia, s/p Pacemaker 12/15/17, loop recorder removal Right sided Abdominal Pain, now resolved, r/o gallstones Recent weight loss Boderline Thyroid H/O colon polyps PLAN: request for abdominal ultrasound diet as tolerated as per cardiology if continue weight loss/decrease appetite after stabalization of thyroid may benefit from elective outpatient GI workup, patient has h/o colon polyps as well. Thank you for allowing to participate in your patient care, further recommendation based upon clinical course. Discussed with Dr. Alonzo who is covering Dr. Thacker.
--- NOTE | 2017-12-16 12:54 | DS ---
Copied To: Redd Chilel MD Attending MD: Redd Chilel MD BRIEF CLINICAL HISTORY: This is an 87-year-old female with a past medical history significant for sick sinus syndrome, status post loop recorder admitted for implantation of permanent pacemaker. The patient underwent permanent pacemaker this morning, the patient had a CT. The patient was started on p.o. amiodarone and metoprolol 50 b.i.d. The patient is in now normal sinus; after getting 2.5 of verapamil, symptoms completely subsided. Awaiting for a chest x-ray repeat. If the chest x-ray is negative, we will discharge the patient. Follow up as an outpatient. Repeat lab this morning shows WBC 11.3, hemoglobin 9.8, hematocrit 32.9, platelet count 542. Chemistry shows sodium 141, potassium 4, chloride 106, carbon dioxide 25, anion gap of 15, BUN 17, creatinine 0.9. TSH 4.89. IMPRESSION: Borderline thyroid stimulating hormone elevated, sick sinus syndrome, status post permanent pacemaker, hypertension, mitral regurgitation and tricuspid regurgitation, status post removal of loop recorder, status post implantation of permanent pacemaker. RECOMMENDATIONS: Continue amiodarone 200 mg daily. We will avoid anticoagulation. The patient remained sinus. Continue baby aspirin 81 mg daily. Continue Lasix 40 mg daily. Continue metoprolol 50 mg twice a day, prescription for amiodarone and metoprolol was given. We will await for the chest x-ray. If the chest x-ray is negative, we will discharge the patient. Medications as mentioned above. Principal procedure done in this admission include implantation of permanent pacemaker, removal of loop recorder. Thank you Dr. Mishra for providing us the opportunity in taking care of the patient, Yenny Astorga. Redd Chilel MD
--- NOTE | 2017-12-16 15:41 | RAD ---
Date of service: 12/16/2017 HISTORY: R/p pneumothorax COMPARISON: 12/15/2017 TECHNIQUE: Chest PA and lateral FINDINGS: LUNGS: No active pulmonary disease. PLEURA: No significant pleural effusion identified. No pneumothorax apparent. CARDIOVASCULAR: Moderate cardiomegaly. Single lead pacemaker OSSEOUS STRUCTURES: No significant abnormalities. VISUALIZED UPPER ABDOMEN: Normal. OTHER FINDINGS: None. IMPRESSION: No evidence of pneumothorax
--- NOTE | 2017-12-16 15:50 | CON ---
Copied To: Eusebio Alonzo MD Attending MD: Eusebio Alonzo MD ADDENDUM DATE: 12/16/2017 An addendum to a consultation performed by Lyssa Mcgrath APN on Yenny Astorga. HISTORY OF PRESENT ILLNESS: I have personally examined this patient. Ms. Astorga is an 87-year-old female who underwent a permanent pacemaker placement yesterday for sick sinus syndrome. She developed some abdominal pain and nausea during an episode of SVT this morning. Her abdominal pain currently has resolved. I agree with Lyssa Mcgrath' assessment and recommendations. She is stable from GI at this point. Eusebio Alonzo MD
--- NOTE | 2017-12-16 18:25 | US ---
Date of service: 12/16/2017 HISTORY: abdominal pain COMPARISON: None. TECHNIQUE: Sonographic evaluation of the abdomen. FINDINGS: LIVER: Measures 15.0 cm. Diffusely increased echogenicity of the liver parenchyma. Consistent with fatty infiltration. Smooth contour. No mass. No biliary ductal dilatation. GALLBLADDER: Cholelithiasis and sludge. No mural thickening. No pericholecystic fluid. Negative sonographic Prasad sign. COMMON BILE DUCT: Measures 6 mm. No stones. No dilatation. PANCREAS: Unremarkable as visualized. No mass. No ductal dilatation. RIGHT KIDNEY: Measures 9.9cm. Normal echogenicity. No calculus, mass, or hydronephrosis. LEFT KIDNEY: Measures 9.0cm. Normal echogenicity. No calculus, mass, or hydronephrosis. SPLEEN: Normal in size and contour. No mass. AORTA: No aneurysmal dilatation. IVC: Unremarkable. OTHER FINDINGS: None. IMPRESSION: Cholelithiasis without evidence of cholecystitis. Fatty infiltration of the liver. No additional abnormality.
--- NOTE | 2017-12-16 20:58 | CARD ---
APPROVED REPORT Date of service: 12/16/2017 EKG Measurement Heart [id number] <Conclusion> Demand pacemaker, interpretation is based on intrinsic rhythm Sinus rhythm with fusion complexes Right bundle branch block Abnormal ECG
--- NOTE | 2017-12-16 21:02 | CARD ---
APPROVED REPORT Date of service: 12/16/2017 EKG Measurement Heart [id number] <Conclusion> Demand pacemaker, interpretation is based on intrinsic rhythm Sinus rhythm Right bundle branch block Abnormal ECG
[2017-12-17] MEDS ORDERED: Levothyroxine 25 MCG TAB PO SCH (06:00)
[2017-12-17 06:23] VITALS: PULSE 60
[2017-12-17 06:24] VITALS: O2SAT 100
[2017-12-17 07:06] LABS: BASO # 0.01 K/mm3 (0.0-2.0); BASO % 0.1 % (0.0-3.0); EOS # 0.1 (0.0-0.7); EOS % 1.1 % (1.5-5.0); GRAN # 9.47 (1.4-6.5); GRAN % 83.5 % (50.0-68.0); HEMOGLOBIN 9.7 g/dL (12.0-16.0); LYMPH # 1.1 (1.2-3.4); LYMPH % 9.3 % (22.0-35.0); MEAN CELL VOLUME 70.4 fl (80.0-105.0); MEAN CORPUSCULAR HEMOGLOBIN 21.7 pg (25.0-35.0); MEAN CORPUSCULAR HGB CONC 30.9 g/dl (31.0-37.0); MEAN PLATELET VOLUME 9.8 fl (7.0-11.0); MONO # 0.7 (0.1-0.6); RBC 4.46 10^6/uL (3.5-6.1); RED CELL DISTRIBUTION WIDTH 18.4 % (11.5-14.5); WHITE BLOOD COUNT 11.4 10^3/ul (4.5-11.0)
[2017-12-17 07:29] LABS: ALB/GLOB RATIO 1.1 (1.1-1.8); ALBUMIN 3.8 g/dL (3.0-4.8)
--- NOTE | 2017-12-17 07:35 | CP.PCM.PN ---
Subjective - Date & Time of Evaluation Date of Evaluation: 12/17/17 Time of Evaluation: 06:20 - Subjective Subjective: No distress, denies abdominal pain Reason for admission and follow up: Status post insertion of PPM, removal of loop recorder, sick sinus syndrome Seen and examined by me and Dr. Chilel Objective - Vital Signs/Intake and Output Vital Signs (last 24 hours): Temp Pulse Resp BP Pulse Ox 97.8 F 60 20 119/60 100 12/17/17 06:00 12/17/17 06:00 12/17/17 06:00 12/17/17 06:00 12/17/17 06:00 Intake and Output: 12/17/17 12/17/17 06:59 18:59 Intake Total 1137 Balance 1137 - Medications Medications: Current Medications Acetaminophen (Tylenol 325mg Tab) 650 mg PO Q6H PRN PRN Reason: Pain, Mild (1-3) Last Admin: 12/16/17 09:48 Dose: 650 mg Amiodarone HCl (Cordarone) 200 mg PO DAILY [facility] Aspirin (Ecotrin) 81 mg PO DAILY [facility] Last Admin: 12/16/17 09:46 Dose: 81 mg Cephalexin Monohydrate (Keflex) 250 mg PO TID [facility] PRN Reason: Protocol Stop: 12/19/17 23:59 Last Admin: 12/16/17 18:14 Dose: 250 mg Clonidine HCl (Catapres) 0.1 mg PO STAT PRN PRN Reason: Systolic Blood Pressure Furosemide (Lasix) 40 mg PO DAILY [facility] Last Admin: 12/16/17 09:46 Dose: 40 mg Hydralazine HCl (Apresoline) 10 mg PO QID PRN PRN Reason: for SBP>160 Levothyroxine Sodium (Synthroid) 25 mcg PO 0600 [facility] Last Admin: 12/17/17 05:45 Dose: 25 mcg Metoprolol Tartrate (Lopressor) 50 mg PO Q12 [facility] Last Admin: 12/16/17 21:11 Dose: 50 mg - Labs Labs: 12/17/17 06:30 12/16/17 06:30 PT 12.0 SECONDS (9.4-12.5) 12/15/17 09:02 INR 1.04 12/15/17 09:02 APTT 30.5 Seconds (25.1-36.5) 12/15/17 09:02 - Constitutional Appears: No Acute Distress - Eye Exam Eye Exam: Normal appearance - ENT Exam ENT Exam: Mucous Membranes Moist - Respiratory Exam Respiratory Exam: Clear to Ausculation Bilateral, NORMAL BREATHING PATTERN - Cardiovascular Exam Cardiovascular Exam: +S1, +S2 Additional comments: PPM site no hematoma - GI/Abdominal Exam GI & Abdominal Exam: Soft, Normal Bowel Sounds Additional comments: denies pain - Extremities Exam Extremities Exam: Normal Capillary Refill - Neurological Exam Neurological Exam: Alert, Awake, Oriented x3 - Psychiatric Exam Psychiatric exam: Normal Affect - Skin Skin Exam: Dry, Warm Assessment and Plan - Assessment and Plan (Free Text) Assessment: A 67 year old female who came in to [facility] for elective PPM insertion and removal of loop recorder. History of sick sinus syndrome. History of severe mitral regurgitation,pulmonary hypertension. she was supposedly being discharged yesterday but complained of abdominal pain thus consult was called. GI recommendation noted. Ultrasound of abdomen showed cholelithiasis without cholecystitis, fatty liver. Patient will follow up as out patient. Plan: Evaluated by GI for abdominal pain Recommendation to follow up as out patient for work up Possible discharge today Cardiac status stable Heart rate and blood pressure controlled Continue current treatment Continue current medications Will follow up Plan and treatment discussed with Dr. Chilel
--- NOTE | 2017-12-17 08:03 | PN ---
Copied To: Redd Chilel MD Attending MD: Redd Chilel MD DATE: 12/16/2017 ADDENDUM TO INITIAL DISCHARGE SUBJECTIVE: The patient was supposed to be discharged, but the patient went for the chest x-ray, feels short of breath and feel congested and concerned that she had SVT in the morning, should happen again. So, we are trying to adjust the medication. We will hold discharge, observe for 24 hours. We will load her with amiodarone 400 mg p.o. t.i.d. and metoprolol was increased to 50 mg. The patient was initially at 50 mg p.o. b.i.d., but decreased because of bradycardia to 25, so this morning, again, was increased to 50 b.i.d. We will observe and follow the chest x-ray the patient had this morning. We will give extra dose of Lasix and repeat the lab in the morning. We will hold the discharge. Redd Chilel MD
--- NOTE | 2017-12-17 09:59 | CP.PCM.PN ---
Subjective - Date & Time of Evaluation Date of Evaluation: 12/17/17 Time of Evaluation: 09:10 - Subjective Subjective: S&E at bedside, chart reviewed, no acute overnight events reported. No N/V or abdominal pain. Tolerating oral intake. Had abdominal US yesterday, have GB stones, sludge no signs of cholecystits, (+) fatty liver, CBD 6mm, no dilation or stones. No reports of sob/cp,overt GIB. Objective - Vital Signs/Intake and Output Vital Signs (last 24 hours): Temp Pulse Resp BP Pulse Ox 97.8 F 60 20 119/60 100 12/17/17 06:00 12/17/17 06:00 12/17/17 06:00 12/17/17 06:00 12/17/17 06:00 Intake and Output: 12/17/17 12/17/17 06:59 18:59 Intake Total 1137 Balance 1137 - Medications Medications: Current Medications Acetaminophen (Tylenol 325mg Tab) 650 mg PO Q6H PRN PRN Reason: Pain, Mild (1-3) Last Admin: 12/16/17 09:48 Dose: 650 mg Amiodarone HCl (Cordarone) 200 mg PO DAILY [facility] Aspirin (Ecotrin) 81 mg PO DAILY [facility] Last Admin: 12/16/17 09:46 Dose: 81 mg Cephalexin Monohydrate (Keflex) 250 mg PO TID [facility] PRN Reason: Protocol Stop: 12/19/17 23:59 Last Admin: 12/16/17 18:14 Dose: 250 mg Clonidine HCl (Catapres) 0.1 mg PO STAT PRN PRN Reason: Systolic Blood Pressure Furosemide (Lasix) 40 mg PO DAILY [facility] Last Admin: 12/16/17 09:46 Dose: 40 mg Hydralazine HCl (Apresoline) 10 mg PO QID PRN PRN Reason: for SBP>160 Levothyroxine Sodium (Synthroid) 25 mcg PO 0600 [facility] Last Admin: 12/17/17 05:45 Dose: 25 mcg Metoprolol Tartrate (Lopressor) 50 mg PO Q12 [facility] Last Admin: 12/16/17 21:11 Dose: 50 mg - Labs Labs: 12/17/17 06:30 12/17/17 06:30 PT 12.0 SECONDS (9.4-12.5) 12/15/17 09:02 INR 1.04 08/20/18 09:02 APTT 30.5 Seconds (25.1-36.5) 12/15/17 09:02 - Constitutional Appears: No Acute Distress - Head Exam Head Exam: NORMOCEPHALIC - Eye Exam Eye Exam: Normal appearance. absent: Scleral icterus - ENT Exam ENT Exam: Mucous Membranes Moist - Neck Exam Neck Exam: Normal Inspection - Respiratory Exam Respiratory Exam: NORMAL BREATHING PATTERN. absent: Respiratory Distress - Cardiovascular Exam Cardiovascular Exam: +S1, +S2 - GI/Abdominal Exam GI & Abdominal Exam: Soft, Normal Bowel Sounds. absent: Guarding, Tenderness, Organomegaly, Rebound - Extremities Exam Extremities Exam: absent: Calf Tenderness, Pedal Edema - Neurological Exam Neurological Exam: Alert, Awake, Oriented x3 - Skin Skin Exam: Dry, Warm Assessment and Plan - Assessment and Plan (Free Text) Assessment: ASSESSMENT: Bradycardia, s/p Pacemaker 12/15/17, loop recorder removal Resolved Right sided Abdominal Pain, s/p abdominal US: GB stones, sludge no signs of cholecystits, (+) fatty liver, CBD 6mm, no dilation or stones Recent weight loss Boderline Thyroid H/O colon polyps PLAN: discuss abdominal US findings diet as tolerated, recommend low fat diet as per cardiology if continue weight loss/decrease appetite after stabalization of thyroid may benefit from elective outpatient GI workup, patient has h/o colon polyps as well , discussed with patient outpatient GI FU, patient endorses that she will FU with her PCP initially after DC. Discussed with Dr. Alonzo who is covering Dr. Thacker.
--- NOTE | 2017-12-17 11:39 | RAD ---
Date of service: 12/17/2017 HISTORY: F/U pneumonia and compare COMPARISON: 12/16/2017 TECHNIQUE: Chest PA and lateral FINDINGS: LUNGS: No active pulmonary disease. PLEURA: No significant pleural effusion identified. No pneumothorax apparent. CARDIOVASCULAR: Mild cardiomegaly. Single lead pacemaker OSSEOUS STRUCTURES: No significant abnormalities. VISUALIZED UPPER ABDOMEN: Normal. OTHER FINDINGS: None. IMPRESSION: No active disease.
[2017-12-17 11:58] VITALS: BP 112/65; RESP 19; TEMP 98.3
--- NOTE | 2017-12-17 23:29 | CARD ---
APPROVED REPORT Date of service: 12/17/2017 EKG Measurement Heart [id number] <Conclusion> Electronic ventricular pacemaker
--- NOTE | 2017-12-18 09:25 | DS ---
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 The patient underwent pacemaker postop. The patient's blood pressure was elevated, felt congested, so discharge was held yesterday. Today, the patient feels fairly stable and wanted to home. The patient is currently being discharged. CURRENT MEDICATION ON DISCHARGE: Include metoprolol 50 mg twice a day, amiodarone 200 mg once a day, Lasix 40 mg daily, levothyroxine 25 mcg daily. FINAL DIAGNOSES: Tachy-raphael syndrome, sick sinus syndrome, status post loop recorder implantation, status post removal of loop, status post permanent pacemaker implantation, hypertension, mitral regurgitation, tricuspid regurgitation, hypothyroidism. LABORATORY DATA: Today's lab showed WBC 11.4, hemoglobin 9.7, hematocrit 31.4, and platelet count 513. Chemistry showed sodium , potassium 5.2, chloride 100, carbon dioxide 25, anion gap of 15, BUN 26, creatinine 1.3. ASSESSMENT AND PLAN: We will wait for stat potassium. If potassium less than 4.9, the patient will be discharged to home. Follow up with Dr. hCilel in 1 to 2 weeks. Medications at discharge as above. Principal procedure done in this admission include removal loop recorder and implantation of single-chamber VVI. Redd Chilel MD
== END 2017-12-17 16:57 | disposition home or self-care (01) | DRG 243 ==
LOC: SDSVAS 08:32 → 2RSO 15:49 → SDSVAS 12-16 11:48
PROVIDERS: ADMIT Internal Medicine Cardiovascular Disease; ATTEND Internal Medicine Cardiovascular Disease
PROC: 0JH604Z Insertion of Pacemaker, Single Chamber into Chest Subcutaneous Tissue and Fascia, Open Approach (ICD-10-PCS; principal; 2017-12-15)
PROC: 02HK3JZ Insertion of Pacemaker Lead into Right Ventricle, Percutaneous Approach (ICD-10-PCS; 2017-12-15)
PROC: 0JPT32Z Removal of Monitoring Device from Trunk Subcutaneous Tissue and Fascia, Percutaneous Approach (ICD-10-PCS; 2017-12-15)
DX: I49.5 Sick sinus syndrome (principal); I47.1 Supraventricular tachycardia; I48.0 Paroxysmal atrial fibrillation; I08.1 Rheumatic disorders of both mitral and tricuspid valves; Z79.82 Long term (current) use of aspirin; I11.0 Hypertensive heart disease with heart failure; I50.9 Heart failure, unspecified; I27.20 Pulmonary hypertension, unspecified; I08.3 Combined rheumatic disorders of mitral, aortic and tricuspid valves; I25.10 Atherosclerotic heart disease of native coronary artery without angina pectoris; R10.9 Unspecified abdominal pain; K80.20 Calculus of gallbladder without cholecystitis without obstruction; Z86.010 Personal history of colon polyps; Z79.899 Other long term (current) drug therapy

== ENCOUNTER 2018-02-23 07:47 | Day surgery (SDC) | payer MEDICARE ==
[2018-02-17 12:12] VITALS: BMI 26.5
--- NOTE | 2018-02-21 02:07 | HP ---
DATE OF EXAM: 02/20/2018 REASON FOR ADMISSION: Complete catheterization and angioplasty. BRIEF CLINICAL HISTORY: This is an 87-year-old female with history of paroxysmal atrial fibrillation, mitral regurgitation, sick sinus syndrome, status post pacemaker, complaining of severe dyspnea on exertion. The patient is seen and scheduled for elective cardiac cath possible angioplasty. PAST MEDICAL HISTORY: Significant for paroxysmal atrial fibrillation, sick sinus syndrome, status post pacemaker, mitral regurgitation and tachy-raphael syndrome. Recent cardiac workup as follows: The patient had echocardiography on 11/26/2017, revealed moderate tricuspid regurgitation, RV systolic pressure 60, ejection fraction of 50%, trace to mild aortic regurgitation, aortic sclerosis, mild to moderate mitral regurgitation, moderate tricuspid regurgitation, RV systolic pressure of 60, moderate pulmonary hypertension. The patient had a loop recorder placed, intervention multiple times, heart rate slowed down, the patient underwent a placement of permanent pacemaker on 12/15/2017, most recent echo again 01/19/2018 shows no vegetation of thrombus, mild to moderate aortic stenosis, mild aortic regurgitation, moderate mitral regurgitation, moderate tricuspid regurgitation, trace pulmonary insufficiency. The patient had a stress test done that showed ejection fraction 60% probably fixed abnormal myocardial perfusion study. In comparison to the last study, the defect appears new. Ejection fraction 60% dated 01/28/2018. History of cardiac catheterization on 04/12/2013 that shows nonobstructive coronary artery disease limited to only OM1, preserved LV function, ejection fraction 65%, [id number] mitral regurgitation by echo, anemia of chronic disease. Recommendation; DIAMOND was done on 05/06/2013 that shows a severe mitral regurgitation. CURRENT MEDICATIONS: The patient is taking metoprolol tartarate 25 mg daily, levothyroxine 75 mg daily, aspirin 81, mg, amiodarone 200 mg, and acetaminophen 650 mg daily. ALLERGIES: NO KNOW DRUG ALLERGY. REVIEW OF SYSTEMS: As per HPI. PHYSICAL EXAMINATION VITAL SIGNS: As follows; height of the patient is 5 feet 2 inches, weight of the patient is 145 pounds, body mass index 26.5 kg/m2. Rest of the vitals: Temperature afebrile, heart rate 80, blood pressure 130/80. HEENT: PERRLA. Extraocular muscles intact. NECK: Supple. No carotid bruits or thyromegaly. CHEST: Clear to auscultation. HEART: S1 and S2, regular. ABDOMEN: Soft. EXTREMITIES: Clubbing and cyanosis negative. LABORATORY DATA: Blood workup pending. IMPRESSION: An 87-year-old female with past medical history significant for nonobstructive coronary artery disease , status post cardiac catheterization in 2012 that shows OM1 disease, history of [id number] mitral regurgitation by transesophageal echocardiogram, repeat echo shows moderate mitral regurgitation. Last stress test done 01/28/2018, fixed defect is new from before. Last catheterization 04/12/2013, nonobstructive coronary artery disease limited to only OM1, status post pacemaker recently because of the sick sinus syndrome, paroxysmal atrial fibrillation, and bradycardia. RECOMMENDATION: To complete left and right heart catheterization, evaluate the valve function. Further recommendation; after cardiac catheterization, will follow with you. The patient also to schedule visit two weeks after the catheterization. We will follow with you. Thank you, Dr. Mishra and , for providing us the opportunity in taking care of the patient Yenny Astorga. Redd Chilel MD
[2018-02-23 08:33] LABS: BASO # 0.04 K/mm3 (0.0-2.0); BASO % 0.4 % (0.0-3.0); EOS # 0.2 (0.0-0.7); EOS % 2.3 % (1.5-5.0); GRAN # 8.26 (1.4-6.5); GRAN % 80.2 % (50.0-68.0); HEMOGLOBIN 9.8 g/dL (12.0-16.0); LYMPH # 1.2 (1.2-3.4); LYMPH % 11.2 % (22.0-35.0); MEAN CELL VOLUME 73.9 fl (80.0-105.0); MEAN CORPUSCULAR HEMOGLOBIN 22.2 pg (25.0-35.0); MEAN CORPUSCULAR HGB CONC 30.1 g/dl (31.0-37.0); MEAN PLATELET VOLUME 10.3 fl (7.0-11.0); MONO # 0.6 (0.1-0.6); MONO % 5.9 % (1.0-6.0); RBC 4.41 10^6/uL (3.5-6.1); RED CELL DISTRIBUTION WIDTH 19.4 % (11.5-14.5); WHITE BLOOD COUNT 10.3 10^3/uL (4.5-11.0)
[2018-02-23 08:47] LABS: CALCIUM 9.8 mg/dL (8.4-10.5)
[2018-02-23 08:48] LABS: INR 1.04; PARTIAL THROMBOPLASTIN TIME 27.9 Seconds (25.1-36.5)
[2018-02-23] MEDS ORDERED: Lidocaine 2% PF (10 ml) Amp ONE (10:06)
[2018-02-23] MEDS ORDERED: Iodixanol 320 MG/ML 100 ML BOTTLE IV ONE (10:08)
[2018-02-23] MEDS ORDERED: Nitroglycerin 50mg in D5W 0 MG/0 ML BOTTLE IV ONE (10:08)
[2018-02-23] MEDS ORDERED: Iodixanol 320 MG/ML 200 ML BOTTLE IV ONE (10:08)
[2018-02-23] MEDS ORDERED: Phenylephrine 10 mg/ml Inj ONE (10:08)
[2018-02-23] MEDS ORDERED: Iohexol 350mgl/ml 50 ML ONE (10:08)
[2018-02-23] MEDS ORDERED: Midazolam 2 MG/2 ML VIAL ONE (10:28)
--- NOTE | 2018-02-23 10:43 | CARD ---
APPROVED REPORT Date of service: 02/23/2018 EKG Measurement Heart [id number] <Conclusion> Demand ventricular pacemaker, interpretation is based on intrinsic rhythm Marked sinus bradycardia with premature ventricular complexes Abnormal ECG
[2018-02-23 11:40] VITALS: TEMP 97.5
--- NOTE | 2018-02-23 12:16 | CPOSTOP ---
DATE: 02/23/2018 CARDIOVASCULAR LAB POSTPROCEDURE NOTE DICTATING PHYSICIAN: Redd Chilel MD. CLEANER AND DYER: Rachna sensor technician. TYPE OF ANESTHESIA: Moderate conscious sedation, total 1 mg of Versed and 50 of fentanyl given. PRE-PROCEDURE DIAGNOSES: Shortness of breath, mitral regurgitation, unstable angina. PROCEDURE PERFORMED: 1. Left heart catheterization. 2. Right heart catheterization. FINDINGS: 1. Normal coronaries. 2. Pulmonary hypertension and mitral regurgitation. FINAL DIAGNOSES: Pulmonary hypertension and mitral regurgitation. POST PROCEDURE CONDITION: The patient's condition is stable. VASCULAR ACCESS SITE: Right femoral artery and right femoral vein. CLOSURE DEVICE: Mynx in right femoral artery as well as right femoral vein. TOTAL RADIATION DOSE: 2856.8 milligray unit. TOTAL FLUORO TIME: 2.7. Redd Chilel MD
[2018-02-23 13:57] VITALS: RESP 18
--- NOTE | 2018-02-23 14:36 | CARD ---
APPROVED REPORT Date of service: 02/23/2018 Procedure(s) performed: Complete Heart Catheterization HISTORY The patient is a 87 year-old female with a history of : previous SC (> 7 days), most recent EF: 60%. (EF Method: RADIONUCLIDE), previous CHF, previous diagnostic cath, tobacco history() : The patient is a former smoker , hypertension , Hx of PAF, tachy/ raphael syndrome, S/p PPM , Hx of MR, pulmonary HTN c/o increasing SOB on Minimal exertion. INDICATION The indication(s) include : chest pain, arrhythmia, atrial fibrillation, dyspnea, valvular heart disease. CASE TECHNIQUE The patient was brought electively to the Cardiac Catheterization Laboratory in a fasting state and was prepped and draped in a sterile manner. The right femoral groin was infiltrated with 2% Lidocaine subcutaneous anesthesia. A 6 Fr x 11 cm Mindy sheath was inserted into the right femoral artery without difficulty. Coronary angiography was performed using coronary diagnostic catheters. The left coronary system was accessed and visualized with a Diagnostic , 5F JL 4 CATH DXT 100 CM catheter. The right coronary system was accessed and visualized with a Diagnostic ,5F JR 4 CATH DXT 100 CM catheter. The left ventricle was accessed and visualized with a 5F PIGTAIL 145 CATH DXT 110 CM catheter. Left ventricular/Aortic Valve gradient assessed on pullback. Left ventriculogram was performed in POSADA projection. Closure device was deployed with a 6 Fr / 7 Fr MynxGrip without any complications. The patient tolerated the procedure well and there were no complications associated with the procedure. Vessel Analysis The patient's coronary anatomy is right dominant. The left main coronary artery is a large size vessel without significant stenosis. The left main trifurcates to the left anterior descending, circumflex, and ramus. The left anterior descending artery is a medium size vessel with diffuse calcification noted throughout this vessel and without significant stenosis. The first diagonal branch is a small size vessel with intimal irregularities and without significant stenosis. The second diagonal branch is a small size vessel with intimal irregularities and without significant stenosis. The third diagonal branch is a small size vessel with intimal irregularities and without significant stenosis. The circumflex artery is a mediummedium size vessel with intimal irregularities and without significant stenosis. The first obtuse marginal branch is a medium size vessel with intimal irregularities and without significant stenosis. The second obtuse marginal branch is a small size vessel with intimal irregularities and without significant stenosis. The third obtuse marginal branch is a small size vessel with diffuse calcification noted throughout this vessel and with significant stenosis. There is a 70% stenosis in the distal segment. The ramus intermedius artery is a medium size vessel with diffuse calcification noted throughout this vessel and without significant stenosis. The right coronary artery is a medium size vessel with intimal irregularities and without significant stenosis. The right posterior descending artery is a small size vessel with intimal irregularities and without significant stenosis. The right posterolateral branch is a small size vessel with intimal irregularities and without significant stenosis. Left Ventricle The left ventricle is normal in size with normal contractility. There was no cardiomyopathy. The left ventricular ejection fraction is estimated to be 55-60%. The left ventricular end diastolic pressure is 20 mmHg. There was no gradient across the aortic valve upon pullback. Right Heart Cath Findings The Right Atrial Pressure is 18 mmHg. The Right Ventricular Pressure is 59/19 mmHg. The Pulmonary Artery Pressure is 59/29 mmHg. with a mean of 40 mmof Hg The Pulmonary Catheter Wedge Pressure is 20-22 mmHg. PVR 5.0 Wood units. The cardiac output and index were assessed using thermo dilution. The Cardiac Output is 4.00 L/min. The Cardiac index is 2.40 L/min/m2. Valves Moderate To sever MR by Hand injection and Enlarged LA. 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 Major epicardial coronaries are normal. Pulmonary HTN, Moderate nehemiah sever MR by hand injection. Preserved LV Fx. EF-55-60, EDP-20 mmof Hg RHC: RA-18, RV-59/19, PA59/29 with a mean of 40, PCW-20-22 CO-4.0 litre/min, CI-2.4, PVR- 5.0 puente unit Only 20-25 cc Cintrast used. Recommendations Cardiac Risk Reduction Program DIAMOND to assess severity of MR, if severe would consider Mitral Clipp CC; Drs. Elizabeth/ Tad.
[2018-02-23] MEDS ORDERED: Sodium Chloride 0.9% 1,000 ML IV SCH (15:00)
[2018-02-23 15:26] VITALS: PULSE 64
[2018-02-23 16:06] VITALS: BP 132/70; O2SAT 97
== END 2018-02-23 16:21 | disposition home or self-care (01) ==
LOC: CATH 07:47
PROVIDERS: ATTEND Internal Medicine Cardiovascular Disease
DX: I25.110 Atherosclerotic heart disease of native coronary artery with unstable angina pectoris (principal); I48.0 Paroxysmal atrial fibrillation; I27.20 Pulmonary hypertension, unspecified; I50.9 Heart failure, unspecified; I11.0 Hypertensive heart disease with heart failure; I25.2 Old myocardial infarction; I34.0 Nonrheumatic mitral (valve) insufficiency; Z87.891 Personal history of nicotine dependence
CPT/HCPCS: 36415; 80048; 80061; 85025; 85610; 85730; 86850; 86900; 93005; 93460; 99152; 99153; C1760; C1769; C1894; C2629; J1644; J1940; J2250; J3010; J7030; Q9966

== ENCOUNTER 2018-03-09 09:45 | Day surgery (SDC) | payer MEDICARE ==
[2018-02-17 12:12] VITALS: BMI 26.5
[2018-03-09] MEDS ORDERED: Naloxone 0.4 mg/ml Inj (Adult) ONE (11:12)
[2018-03-09] MEDS ORDERED: Flumazenil 0.1 mg/ml Inj (5ml) IVP ONE (11:12)
[2018-03-09] MEDS ORDERED: Midazolam 2 MG/2 ML VIAL ONE (11:12)
[2018-03-09] MEDS ORDERED: Midazolam 2 MG/2 ML VIAL IV ONE ×2 (11:28→11:29)
[2018-03-09] MEDS ORDERED: Sodium Chloride 0.9% 1,000 ML IV SCH (12:15)
[2018-03-09 13:37] VITALS: BP 117/67; PULSE 63; RESP 20; TEMP 98.5; O2SAT 98
--- NOTE | 2018-03-09 16:24 | CARD ---
APPROVED REPORT Date of service: 03/09/2018 EXAM: Transesophageal echocardiogram with color flow Doppler. INDICATION MITRAL REGURGE Mitral Valve E/A ratio0.0 TDI E/Lateral E'0.0E/Medial E'0.0 Tricuspid Valve TR Peak [id number] [id number] Peak Gr.45mmHg [id number] Reason For Test : To assess MR/ PROCEDURE After obtaining informed consent, patient underwent transesophageal echo in the Echo Lab. Type of Sedation : Conscious Sedation Sedation was administered by DR. Chilel. Sedation was achieved with Versed and fentanyl 3 mg and 50 mcg intravenously. Transesophageal probe was inserted and advanced into esophagus without difficulty. Echo enhancement indication: R/O Septal defect. Echo enhancement agent administered: Agitated Saline The DIAMOND was performed without complications. Throughout the procedure, the blood pressure, pulse oximetry, cardiac rhythm, and rate were monitored. The patient tolerated the procedure without adverse effects. Recovery from conscious sedation was uneventful and vital signs were stable. LEFT VENTRICLE The left ventricle is normal size. There is mild concentric left ventricular hypertrophy. The left ventricular function is normal.EF-65% There is normal LV segmental wall motion. The left ventricular diastolic function is normal. No left ventricle thrombus noted on this study. There is no ventricular septal defect visualized. There is no left ventricular aneurysm. There is no mass noted in the left ventricle. RIGHT VENTRICLE The right ventricle is borderline dilated. There is normal right ventricular wall thickness. Systolic function is borderline reduced. There is a pacemaker lead in the right ventricle. ATRIA The left atrium is severely dilated. The right atrium is mildly dilated. There is a catheter/pacemaker lead seen in the right atrium. The interatrial septum is intact with no evidence for an atrial septal defect. AORTIC VALVE The aortic valve is mildly sclerotic. There is mild to moderate aortic regurgitation. There is no aortic valvular stenosis. There is no aortic valvular vegetation. MITRAL VALVE The mitral valve leaflets are thickened. A borderline mitral valve prolapse is present. The mitral valve leaflets are thickened and redundant consistent with mitral valve prolapse ( mild, anterior leaflet) There is no mitral valve stenosis. Mitral regurgitation is moderate to severe., when SBP 127/73 ( Multiple Jets) TRICUSPID VALVE The tricuspid valve leaflets display thickening. There is moderate tricuspid regurgitation.RVSP-51 mmof hg. There is mild-moderate pulmonary hypertension. There is no tricuspid valve prolapse or vegetation. There is no tricuspid valve stenosis. PULMONIC VALVE The pulmonary valve is normal in structure. There is trace pulmonic valvular regurgitation. There is no pulmonic valvular stenosis. GREAT VESSELS The aortic root is normal in size. The ascending aorta is normal in size. The pulmonary artery is normal. The IVC is normal in size and collapses >50% with inspiration. PERICARDIAL EFFUSION There is no pericardial effusion. There is no pleural effusion. <Conclusion> The left ventricle is normal size. There is mild concentric left ventricular hypertrophy. The left ventricular function is normal.EF-65% There is mild to moderate aortic regurgitation. A borderline mitral valve prolapse is present. The mitral valve leaflets are thickened and redundant consistent with mitral valve prolapse ( mild, anterior leaflet) Mitral regurgitation is moderate to severe., when SBP 127/73 ( Multiple Jets) There is moderate tricuspid regurgitation.RVSP-51 mmof hg. There is mild-moderate pulmonary hypertension. There is trace pulmonic valvular regurgitation. The IVC is normal in size and collapses >50% with inspiration. There is no pleural effusion. Cc; drs. Mishra/ smita.
== END 2018-03-09 15:30 | disposition home or self-care (01) ==
LOC: TEE 09:45
PROVIDERS: ATTEND Internal Medicine Cardiovascular Disease
DX: I08.3 Combined rheumatic disorders of mitral, aortic and tricuspid valves (principal); I27.20 Pulmonary hypertension, unspecified
CPT/HCPCS: 93312; J2250; J3010; J7030; J7040

== ENCOUNTER 2018-08-27 08:46 | Outpatient (CLI) | payer MEDICARE | END 2018-08-27 08:47 | disposition home or self-care (01) | LOC: CARDIO 08:46 | DX: R06.02 Shortness of breath (principal); Z95.0 Presence of cardiac pacemaker ==